=== PATIENT | female | born 1965 | race Caucasian/White ===

== ENCOUNTER 2020-07-26 05:23 | Outpatient (CLI) | payer OTHER, MEDICAID, SELFPAY | END 2020-07-26 05:43 | PROVIDERS: PCP Nurse Practitioner; Visit Provider Pediatrics Pediatric Rheumatology | DX: Z02.71 Encounter for disability determination (principal); Z99.81 Dependence on supplemental oxygen | CPT/HCPCS: 94618 ==

== ENCOUNTER → 2024-06-06 01:00 | Outpatient (CLI) | payer MEDICARE, SELFPAY ==
--- NOTE | 2024-06-06 | DI.CTLCSR_ITS ---
Exam(s) CT CHEST LUNG CANCER SCREEN EXAM: CT CHEST LUNG CANCER SCREEN CLINICAL HISTORY: SCREENING FOR LUNG CA, CURRENT SMOKER, F17.210 TECHNIQUE: Imaging Protocol: Axial computed tomography images with coronal and sagittal reformatted images were created and reviewed. Low dose screening protocol. COMPARISON: No exams were available for comparison FINDINGS: Tracheobronchial tree: No bronchiectasis or mucus plugging. Mediastinum and Karina: No dominant adenopathy or fluid collection. Pulmonary parenchyma: No consolidation or dominant measurable mass. Moderate emphysematous changes, g reater in upper lobes. Scarring in lingula. Lung Nodules: No suspicious pulmonary nodules. Pleura: No effusion. No pneumothorax. Heart: The heart is not dilated. Mild coronary artery calcifications are seen. Aorta: Thoracic aorta non-dilated. Upper abdomen: Limited evaluation due to artifact from low-dose technique. Status post cholecystect jude. Borderline enlarged spleen. Recanalized umbilical vein could indicate cirrhosis. Bones: Scoliosis and degenerative changes. Soft Tissues: Unremarkable. IMPRESSION: No suspicious pulmonary nodules. Lung RADS Cat 1 - Negative: No nodules and definitely benign nodules Lung-RADS 1.0 CATEGORIES: Category 0 - Prior chest CT exam(s) being located for comparison. Category 1 - Annual screening in 12 months. No nodules or definitely benign nodules. Category 2 - Annual screening in 12 months. Benign appearance. Nodules with low likelihood of becomin g active cancer. Category 3 - 6-month follow-up. Probably benign. Short-term follow-up suggested. Nodules with low lik elihood of becoming active cancer. Category 4A - 3-month follow-up and CT/PET if >8 mm in size. Suspicious finding. Findings which requi re additional testing. Category 4B - Findings which require additional testing and tissue sampling. Category 4X - Category 3 or 4 nodules with additional features or imaging findings that increases the suspicion of malignancy. Modifier S- Potentially clinically significant findings (non lung cancer) RADIATION DOSE DELIVERED: Total DLP DATA REPOSITORY: All CT scans at this facility are submitted to the National Radiology Data Registry (NRDR) Dose Index Registry (DIR) with the [employer] (ACR). RADIATION OPTIMIZATION: All CT scans at this facility use at least one of these dose optimization te chniques: automated exposure control; mA and/or kV adjustment per patient size (includes targeted exa ms where dose is matched to clinical indication); or iterative reconstruction.
--- OUTSIDE RECORDS SUMMARY | 2024-06-06 01:04 | XMS_ITS | Encounter Summary ---
[place] [address] Care Team Providers Care News Reporter Name Role Phone Karin Cronin APRN Primary Care Provider +1- [phone] Reason for Visit * Reason Comments Medication Refill Encounter Details Date Type Department Care Team (Late st Contact Info) Description 07/31/2022 Ref[place] [address] Emery Elizabeth, PA [address] [place] [address] [place] [address] Alcoholic cirrhosis, unspecified whether ascites present Social History Tobacco Use Types Packs/Day Years Used Date Smoking Tobacco: Every Day Cigarettes 0.5 40 Smokeless Tobacco: Never Alcohol Use Standard Drinks/Week Comments No 0 (1 standard drink = 0.6 oz pur e alcohol) Sex and Gender Information Value Date Recorded Sex Assigned at Not on file Gender Identity Not on file Sexual Orientation Not on file documented as of this encounter Plan of Treatment Not on file documented as of this encounter Visit Diagnoses Diagnosis Alcoholic cirrhosis, unspecified whether ascites present documented in this encounter Care Teams News Reporter Relationship Specialty Start Date End Date Karin Cronin APRN PCP - General Family Medicine 09/05/15 documented as of this encounter
--- OUTSIDE RECORDS SUMMARY | 2024-06-06 01:04 | XMS_ITS | Encounter Summary ---
[place] [address] Care Team Providers Care Accuracy Expert Name Role Phone Karin Cronin APRN Primary Care Provider +1- [phone] Reason for Visit * Reason Comments Medication Refill Encounter Details Date Type Department Care Team (Late st Contact Info) Description 10/29/2022 Refill [place] [address] Emery Elizabeth, PA [address] [place] [address] [place] [address] Alcoholic cirrhosis, unspecified whether ascites present Social [...] present documented in this encounter Care Teams Accuracy Expert Relationship Specialty Start Date End Date Karin Cronin APRN PCP - General Family Medicine 09/05/15 documented as of this encounter
--- OUTSIDE RECORDS SUMMARY | 2024-06-06 01:04 | XMS_ITS | Encounter Summary ---
[place] [address] Care Team Providers Care Account Clerk Name Role Phone Karin Cronin APRN Primary Care Provider +1- [phone] Encounter Details Date Type Department Care Team (Late st Contact Info) Description 04/02/2022 Telephone [place] [id number] Dasha Foster Social History Tobacco Use Types Packs/Day Years Used Date Smoking Tobacco: Every Day Cigarettes 0.5 40 Smokeless Tobacco: Never Alcohol Use Standard Drinks/Week Comments No 0 (1 standard drink = 0.6 oz pur e alcohol) Sex and Gender Information Value Date Recorded Sex Assigned at Not on file Gender Identity Not on file Sexual Orientation Not on file documented as of this encounter Miscellaneous Notes * Telephone Encounter - Dasha Foster - 04/02/2022 1:40 PM EDT Called pt to schedule May follow up with Emery Elizabeth, with labs and US prior. Left VM. documented in this encounter Plan of Treatment Not on file documented as of this encounter Visit Diagnoses Not on filedocumented in this encounter Care Teams Account Clerk Relationship Specialty Start Date End Date Karin Cronin APRN PCP - General Family Medicine 09/05/15 documented as of this encounter
--- OUTSIDE RECORDS SUMMARY | 2024-06-06 01:04 | XMS_ITS | Encounter Summary ---
[place] [address] Care Team Providers Care Brick Offbearer Name Role Phone Karin Cronin APRN Primary Care Provider +1- [phone] Encounter Details Date Type Department Care Team (Late st Contact Info) Description 10/23/2022 Telephone [place] [address] James Mónica Yumiko Social History Tobacco Use Types Packs/Day Years [...] encounter Miscellaneous Notes * Telephone Encounter - James Mónica Yumiko - 10/23/2022 8:55 AM EST Placed outgoing phone call to patient in order to schedule a procedure. Phone Call Outcome: Left voicemail asking for return call. This was the 1st attempt If the call is returned, it can be handled by: [facility] Room Attendant documented in this encounter Plan of Treatment Not on file documented as of this encounter Visit Diagnoses Not on filedocumented in this encounter Care Teams Brick Offbearer Relationship Specialty Start Date End Date Karin Cronin APRN PCP - General Family Medicine 09/05/15 documented as of this encounter
--- OUTSIDE RECORDS SUMMARY | 2024-06-06 01:04 | XMS_ITS | Encounter Summary ---
Author Organization [facility] [place] [address] Care Team Providers Care Technical Services Analyst Name Role Phone Karin Cronin APRN Primary Care Provider +1- [phone] Encounter Details Date Type Department Care Team (Late st Contact Info) Description 09/12/2021 Interpretation Only [facility] [address] [place] [address] Luc Castro MD [address] [place] [address] Social History Tobacco Use Types Packs/Day Years [...] on file documented as of this encounter Procedures Procedure Name Priority Date/Time Associated Diagnosis Comments XR WRIST 3 VIEWS BILATERAL STAT 09/12/2021 7:55 AM EDT documented in this encounter Results * XR Wrist 3 Views Bilateral (09/12/2021 7:55 AM EDT) PT CLASS E DH RAD ADMITDTTM RAD PT RAD INFO [id number]^B ENEDICT^PRASANNA PH^G DH RAD EXAM DESC [id number]^X R RIGHT WRIST COMPLETE^RIS RAD Anatomical Region Laterality Modality Wrist Bilateral Radiographic Tracie ging Impressions 09/12/2021 8:37 AM EDT No fractures seen. Thank you for letting us participate in the care of this patient. ??If you are a health care provider and have any questions regarding this report, please contact the number below. ??For patients who have questions please contact the health district manager primary care sales that requested your imaging first. ? Electronically signed by: Jerod Morrison MD, [facility] ([phone]), at 09/12/2021 8:37 AM Narrative 09/12/2021 8:37 AM EDT EXAMINATION: XR RIGHT WRIST COMPLETE CLINICAL HISTORY: twisting injury yesterday TECHNIQUE: 3 views the right wrist COMPARISON: None FINDINGS: No acute fracture or dislocation. Normal alignment. No focal osseous lesions Procedure Note Jerod Morrison MD - 09/12/2021 EXAMINATION: XR RIGHT WRIST COMPLETE CLINICAL HISTORY: twisting injury yesterday TECHNIQUE: 3 views the right wrist COMPARISON: None FINDINGS: No acute fracture or dislocation. Normal alignment. No focal osseouslesions IMPRESSION No fractures seen. Thank you for letting us participate in the care of this patient. If youare a health care provider and have any questions regarding this report,please contact the number below. For patients who have questions please contactthe health district manager primary care sales that requested your imaging first. Electronically signed by: Jerod Morrison MD, [facility]([phone]), at 09/12/2021 8:37 AM Luc Castro MD IMG DX ORDERABLES documented in this encounter Visit Diagnoses Not on filedocumented in this encounter Care Teams Technical Services Analyst Relationship Specialty Start Date End Date Karin Cronin APRN PCP - General Family Medicine 09/05/15 documented as of this encounter
--- OUTSIDE RECORDS SUMMARY | 2024-06-06 01:04 | XMS_ITS | Encounter Summary ---
Author Organization [facility] Address [facility] [place] [address] Care Team Providers Care Strategy Consultant Name Role Phone [place], Karin TISHA Primary Care Provider +1- [phone] Encounter Details Date Type Department Care Team (Latest Contact Info) Description 11/07/2015 1:52 PM EST - 11/07/2015 11:59 PM EST Hospital Encounter XRay at [address] [place] [address] Jose Murray MD [facility] [place] [address] Adhesive capsulitis of left shoulder Discharge Disposition: Home Social History Tobacco Use Types Packs/Day Years Used Date Smoking Tobacco: Every Day Cigarettes 0.5 40 Smokeless Tobacco: Never Alcohol Use Standard Drinks/Week Comments No 0 (1 standard drink = 0.6 oz pur e alcohol) Sex and Gender Information Value Date Recorded Sex Assigned at Not on file Gender Identity Not on file Sexual Orientation Not on file documented as of this encounter Medications at Time of Discharge Medication Sig Dispensed Refills Start Date End Date fluticasone (FLONASE) 50 mcg/actuation Burton, Suspension 2 sprays by Each Nare route daily. 11/01/2015 EPINEPHrine (EPIPEN) 0.3 mg/0.3 mL (1:1,000) Auto-Injector Inject 0.3 mg into the muscle once as needed. 06/18/2015 oxyCODONE (ROXICODONE) 5 mg Tablet Take 5 mg by mouth as needed. 10/19/2015 02/10/2022 ibuprofen (ADVIL;MOTRIN) 800 mg Tablet Take 800 mg by mouth every 8 hours as needed. 10/18/2015 02/10/2022 albuterol (PROVENTIL HFA;VENTOLIN HFA;PROAIR) 90 mcg/actuation HFA Aerosol Inhaler Inhale 2 puffs into the lungs every 4 hours as needed for Wheezing. Use with spacer 02/10/2022 furosemide (LASIX) 20 mg Tablet Take 1 tablet by mouth daily. 07/12/2015 02/10/2022 spironolactone (ALDACTONE) 25 mg Tablet Take 1 tablet by mouth daily. 09/16/2015 02/10/2022 documented as of this encounter Plan of Treatment Not on file documented as of this encounter Procedures Procedure Name Priority Date/Time Associated Diagnosis Comments XR FLUORO INJECTION FL DRAIN LARGE JT Routine 11/07/2015 3:09 PM EST Adhesive capsulitis of left shoulder documented in this encounter Results * XR Fluoro Injection Fl Drain Large Jt (11/07/2015 3:09 PM EST) Anatomical Region Laterality Modality N/A Radio Fluoroscop y Impressions 11/07/2015 4:04 PM EST IMPRESSION: Uneventful left shoulder injection under fluoroscopy. Procedure performed by Richelle Wei APRN Resident/Fellow: None present Attending: Dr. Samaniego Narrative 11/07/2015 4:04 PM EST HISTORY: GH shoulder pain, LEFT shoulder proximal biceps tendonitis and adhesive capsulitis Left shoulder INJECTION UNDER FLUOROSCOPY TECHNIQUE: After an extensive conversation with the patient regarding risks and benefits, oral and written consent were obtained. ??A pre- procedural time-out was performed as per [facility] protocol. The patient was placed supine on the fluoroscopic table. ??The left shoulder was prepped and draped in the usual aseptic manner. 1% Lidocaine was used to achieve local anesthesia. Under fluoroscopic guidance, 22-gauge needle was advanced into the joint space. ??Small amount of air was injected to the document needle placement. ??A mixture of Ropivacaine and triamcinolone acetonide was injected. All needles removed at end of procedure. FINDINGS: 1. ??Small amount of injected air in the left glenohumeral joint space. 2. ??PAIN SCORE: ??Before: 4-5/10 ??After: 2-3/10 3. Fluoroscopy time: 23 sec 4. Medications: ??Lidocaine 1% - <5 ml, for subcutaneous anesthesia ??Ropivacaine HCL ??0.5% - 3 ml ??Triamcinolone Acetonide ??- 40 mg COMPLICATIONS: ??None immediate. POST-PROCEDURE CARE: Information regarding monitor of infection, post- procedural pain and management of steroid flare were reviewed with patient. Procedure Note Richelle Wei APRN - 11/07/2015 HISTORY: GH shoulder pain, LEFT shoulder proximal biceps tendonitis andadhesive capsulitis Left shoulder INJECTION UNDER FLUOROSCOPY TECHNIQUE: After an extensive conversation with the patient regardingrisks and benefits, oral and written consent were obtained. A pre- proceduraltime-out was performed as per [facility] protocol. The patient was placed supine on the fluoroscopic table. The leftshoulder was prepped and draped in the usual aseptic manner. 1% Lidocaine was used toachieve local anesthesia. Under fluoroscopic guidance, 22-gauge needle wasadvanced into the joint space. Small amount of air was injected to the documentneedle placement. A mixture of Ropivacaine and triamcinolone acetonide wasinjected. All needles removed at end of procedure. FINDINGS: 1. Small amount of injected air in the left glenohumeral joint space. 2. PAIN SCORE: Before: 4-5/10 After: 2-3/10 3. Fluoroscopy time: 23 sec 4. Medications: Lidocaine 1% - <5 ml, for subcutaneous anesthesia Ropivacaine HCL 0.5% - 3 ml Triamcinolone Acetonide - 40 mg COMPLICATIONS: None immediate. POST-PROCEDURE CARE: Information regarding monitor of infection, post- procedural pain and management of steroid flare were reviewed withpatient. IMPRESSION IMPRESSION: Uneventful left shoulder injection under fluoroscopy. Procedure performed by Richelle Wei APRN Resident/Fellow: None present Attending: Dr. Samaniego Jose Murray MD IMG FLUORO ORDERABLE S documented in this encounter Visit Diagnoses Diagnosis Adhesive capsulitis of left shoulder Adhesive capsulitis of shoulder documented in this encounter Administered Medications Inactive Administered Medications - up to 3 most recent administrations Medication Order MAR Action Action Date Dose Rate Site ROpivacaine (PF) 5 mg/mL (0.5 %) 4 mL with triamcinolone acetonide 40 mg injection Intra-articular, ONCE, 1 dose, On Thu11/07/15 at 1530 Given 11/07/2015 3:30 PM EST documented in this encounter Care Teams Strategy Consultant Relationship Specialty Start Date End Date Karin Cronin APRN PCP - General Family Medicine 09/05/15 documented as of this encounter
--- OUTSIDE RECORDS SUMMARY | 2024-06-06 01:04 | XMS_ITS | Encounter Summary ---
Author Organization [facility] [place] [place] [address] Care Team Providers Care Missile Facilities Repairer Name Role Phone Maxwell, Karin TISHA Primary Care Provider +1- [phone] Encounter Details Date Type Department Care Team (Late st Contact Info) Description 07/09/2022 Tele[place] [address] JamesFebruary Social History Tobacco Use Types Packs/Day Years [...] encounter Miscellaneous Notes * Telephone Encounter - JamesFebruary - 07/09/2022 11:40 AM EDT Jana Ashton [id number] Diagnosis/Indication: history of ETOH cirrhosis with UGIB in 1999s in [place], s/p banding, Please review patient chart to confirm if previous Endoscopy procedure was performed within system. If yes, take note of Anesthesia type used. If previous procedure found, and with MAC/propofol Anesthesia support was used, schedule this procedure with Anesthesia and skip the Anesthesia portion of questions. If not performed within system, not performed at all, or performed with IVCS, ask Anesthesia questions. SCHEDULING QUESTIONS (ask all patient these questions) 1. Have you ever had a/an Upper Endoscopy before? Yes: Date egd 2007 [place] If yes, did you have any problems with the procedure (such as waking up during the procedure, pain or difficulties afterwards, etc.)? No What type of sedation was used: Other: unknown 2. Do you take any blood thinners or have you been diagnosed with a bleeding disorder that increases your risk of bleeding with procedures? No 3. Do you have a Pacemaker or Defibrillator device? If yes, send pool message to Cardiology with patient information and date or procedure. No 4. Are you a diabetic? If yes, call PCP/managing provider to discuss use of prep and any questions or concerns related to. No 5. Do you take any iron supplements or vitamins that contain iron? No 6. Do you have a preference regarding the gender of your provider? No ANESTHESIA QUESTIONS (YES to any question, please book with Anesthesia support) 7. Have you ever been diagnosed with any of the following: Pulmonary Hypertension, Atrial Fibrillation (A-Fib) and/or Congential Heart Disease? No 8. Have you ever had an allergic or adverse reaction to Fentanyl or Versed? No 9. Have you had a problem with sedation or anesthesia? (Waking up during procedure, extreme confusion after, etc.) No 10. Do you have a diagnosis of Obstructive Sleep Apnea? No 11. Do you use a c-pap machine? Neither 12. Do you use an oxygen tank at home? No 13. Do you use a rescue inhaler more than twice per day? (COPD, severe asthma) Yes 14. Do you experience breathing problems when you lay flat for a period of time? No 15. Do you take prescription narcotic pain medications, including suboxone or methodone? No SCHEDULING CONFIRMATIONS: Please note any and all parts of your conversation with the patient here. 16. We offer all new patients an opportunity to have an appointment with one of our associate care providers to learn more about your upcoming procedure, ask questions and get answers. These appointments are offered via telehealth. Would you be interested in scheduling this appointment? (Only ask if NEW referral patient; skip this question if [facility] GI provider ordered the procedure.) No 17. Is there any other information or concerns you would like to us to share with your care team inrelation to your upcoming scheduled procedure? No 18. You must have a responsible democrat who will drive you to your procedure, stay on campus for the entire duration of your procedure, and drive you home from your procedure. Who will likely be your independent driver for the procedure? *Please Verify the height and weight, and adjust if height and/or weight have changed* Estimated body mass index is 28.08 kg/m?? as calculated from the following: Height as of 12/20/15: 167.6 cm (5' 6). Weight as of 02/10/22: 78.9 kg (174 lb). Age:56 y.o. documented in this encounter Plan of Treatment Not on file documented as of this encounter Visit Diagnoses Not on filedocumented in this encounter Care Teams Missile Facilities Repairer Relationship Specialty Start Date End Date Karin Cronin APRN PCP - General Family Medicine 09/05/15 documented as of this encounter
--- OUTSIDE RECORDS SUMMARY | 2024-06-06 01:04 | XMS_ITS | Encounter Summary ---
[facility] Organization [facility] [place] [address] Care Team Providers Care Trolley Coach Driver Name Role Phone Karin Cronin APRN Primary Care Provider [phone]- [phone] Reason for Referral * Physical Therapy (Routine) - Closed Specialty Diagnoses / Procedures Referred By Dustin jordan Referred To Contact Diagnoses Adhesive capsulitis of left shoulder Conchita Mendiola TARIFF CLERK [facility] [place] [address] Unknown None Referral ID Status Reason Start Date Expiration Date V isits Requested Visits Authorized [id number] Closed Evaluate and Treat 10/30/2015 04/27/2016 24 24 Reason for Visit * Reason Comments Left Shoulder Pain WC DOI 07/27/15 Encounter Details Date Type Department Care Team (Late st Contact Info) Description 10/30/2015 9:00 AM EST Office [place] [address] Conchita Mendiola [facility] [place] [address] Adhesive capsulitis of left shoulder; Subacromial bursitis, left; Tendinopathy of left biceps; SLAP tear of shoulder, left, subsequent encounter Social History Tobacco Use Types Packs/Day Years Used Date Smoking Tobacco: Every Day Cigarettes 0.5 40 Smokeless Tobacco: Never Tobacco Cessation:Ready to Q uit: No; Counseling Given: No Alcohol Use Standard Drinks/Week Comments No 0 (1 standard drink = 0.6 oz pur e alcohol) Sex and Gender Information Value Date Recorded Sex Assigned at Not on file Gender Identity Not on file Sexual Orientation Not on file documented as of this encounter Last Filed Vital Signs Vital Sign Reading Time Taken Comments Blood Pressure 124/73 10/30/2015 9:11 AM EST Pulse 81 10/30/2015 9:11 AM EST Temperature - - Respiratory Rate - - Oxygen Saturation - - Inhaled Oxygen Concentration - - Weight 77.1 kg (170 lb) 10/30/2015 9:11 AM EST v erbal Height 167.6 cm (5' 6) 10/30/2015 9:11 AM EST v erbal Body Mass Index 27.44 10/30/2015 9:11 AM EST documented in this encounter Progress Notes * Conchita Mendiola, TARIFF CLERK - 10/30/2015 9:18 AM EST Chief Complaint: LEFT shoulder pain. F/u appointment. 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 Murray's previous detailed initial evaluation which will not repeated here. In general, she has made slow steady gains with range of motion and decreased pain with overhead activity. Yet, she continues with a burning pain over the lateral deltoid and anterior glenohumeral pain over the proximal biceps tendon. Modalities thus far have includedseveral sessions of physical therapy and oral NSAID's. She has continued with night time pain and she did recently see her PCP and oral Ibuprofen during the day was recommended along with oral percocet at bedtime, Which she has been using sparingly. No interval falls injuries or infections. There is no radicular component to her LEFT shoulder pain. There is no neck pain. Occasional numbness and tingling in her fourth and fifth finger unchanged today. No history of cubital tunnel syndrome. Her chronic medical illnesses are stable otherwise I updated her problem list today. And she's here for definitive management. ROS: Denies fever, chills, nausea, vomiting, vision change, shortness of breath, chest pain, visionchanges, headaches, bowel or bladder problem, ear, nose, sinus problem, neuro or psychiatric, or endocrine disorder not addressed above. Patient's medications, allergies, past medical, surgical, social and family histories were reviewedand updated as appropriate. PHYSICAL EXAMINATION: Filed Vitals: 10/30/15 0911 BP: 124/73 Pulse: 81 Height: 167.6 cm (5' 6) Weight: 77.111 kg (170 lb) Body mass index is 27.45 kg/(m^2). General: This is a very pleasant 50-year-old uchjm-fgup-ynpopclr female no acute distress she is alert and oriented ??3 affect is bright and appropriate. She is here with her today. HEENT - normocephalic, atraumatic, sclera clear c-spine with mild stiffness with negative Spurling's. Chest: RR: 12. Non-labored. Orthopedic left shoulder exam: LEFT shoulder ROM: There is improved active range of motion today noted active forward flexion to 140?? with a soft end endpoint. There is a painful arc. Abduction to approximately 120?? with a painful arc. External rotation to approximate 60?? with a soft endpoint. Internal rotation to approximately L4/L5. There is tenderness at the proximal biceps tendon with a positive speeds Yergason's and [place]'s. There is tenderness at the anterior glenohumeral joint. There is mild tenderness of the lateral deltoid. Posture is rounded. Rotator cuff impingement signs: There is a negative Neer positive Ray. There is no tenderness at the acromioclavicular joint. IMAGING: OUTSIDE Left shoulder MRI scan reviewed image by image in the office today from an outsideprovider. There is evidence of rotator cuff tendinopathy with mild fraying, mild acromioclavicular joint degenerative changes, probable SLAP tear, proximal biceps tendinopathy without subluxation rupture. ASSESSMENT: This is a very pleasant 50-year-old xgytk-rjfp-irueedff female with a work-related leftshoulder injury with slow improvement with her progress particularly with range of motion and adhesive capsulitis symptoms of the LEFT shoulder. The LEFT shoulder proximal Biceps tendon symptoms continue with no mechanical complaints with known SLAP tear. Mild rotator cuff impingement noted clinically. PLAN: I reviewed my findings in the office today with both MRI scan and clinical exam. Treatment options and risks/benefits discussed from least to most invasive. Patient understands options. At thistime, the initial thought was to try a subacromial cortisone injection yet the majority of her symptoms today are proximal biceps tendon with known SLAP tear and biceps tendinopathy. There is resolving adhesive capsulitis. I discussed the difference between a subacromial cortisone injection and a fluoroscopically guided glenohumeral injection. Per Pt request, Due to anxiety and claustrophobia, she will need oral sedation with this procedure ordered in ED H today. The aforementioned injection will be followed by a comprehensive physical therapy program and her PT orders are updated today. The goal is to focus on range of motion exercises. I did ask her to keep a close diary of her symptoms post injection as this is both a diagnostic and therapeutic injection. If her rotator cuff impingement symptoms persist, she may benefit from a subacromial cortisone injection in the office at her nextvisit. At this time, she will remain out of work as she states there is no light duty work available to her at her [employer]. [facility] [place] today. The follow plan is to see her in 6-8 weeks post-injection to discuss further treatment options. We will need a LEFT shoulder x-ray at her next a ppointment, Yet I will see her in the office first. Pt agrees, questions solicited/answered, will return as scheduled and as needed for concerns or questions. Pt understands they may also call us prnfor above. documented in this encounter Plan of Treatment Scheduled Referrals Name Type Priority Associated Diagnoses Orde r Schedule Referral to Physical Therapy Outpatient Referral Routine Adhesive capsulitis of left shoulder Ordered: 10/30/2015 documented as of this encounter Results * XR Fluoro Injection [...] pre- procedural time-out was performed as per [facility] protocol. The patient was placed supine on [...] space. 2. ??PAIN SCORE: ??Before: 4-5/10 ??After: 2-310 3. Fluoroscopy time: 23 sec 4. Medications: ??Lidocaine 1% - <5 ml, for subcutaneous anesthesia ??Ropivacaine HCL ??0.5% - 3 ml ??Triamcinolone Acetonide ??- 40 mg COMPLICATIONS: ??None immediate. POST-PROCEDURE CARE: Information regarding monitor of infection, post- procedural pain and management of steroid flare were reviewed with patient. Procedure Note Richelle Wei, TARIFF CLERK - 11/07/2015 HISTORY: GH shoulder pain, LEFT shoulder proximal biceps tendonitis andadhesive capsulitis Left shoulder INJECTION UNDER FLUOROSCOPY TECHNIQUE: After an extensive conversation with the patient regardingrisks and benefits, oral and written consent were obtained. A pre- proceduraltime-out was performed as per [facility] protocol. The patient was placed supine on [...] of left shoulder Adhesive capsulitis of shoulder Subacromial bursitis, left Tendinopathy of left biceps SLAP tear of shoulder, left, subsequent encounter Adhesive capsulitis of left shoulder Adhesive capsulitis of shoulder documented in this encounter Care Teams Trolley Coach Driver Relationship Specialty Start Date End Date Karin Cronin APRN PCP - General Family Medicine 09/05/15 documented as of this encounter
--- OUTSIDE RECORDS SUMMARY | 2024-06-06 01:04 | XMS_ITS | Clinical Summary ---
Author Organization [facility] Address [address] [place] [address] Care Team Providers Care Inspector Screen Printing Name Role Phone Unknown, Provider Primary Care Provider Social History Tobacco Use Types Packs/Day Years Used Date Smoking Tobacco: Never Assessed Interpersonal Safety Answer Date Record ed Physically Hurt Never 06/22/2020 Verbally Threaten Not on file 06/22/2020 Sex and Gender Information Value Date Recorded Sex Assigned at Not on file Gender Identity Not on file Sexual Orientation Not on file Plan of Treatment Health Maintenance Due Date Last Done Comments Hepatitis C Screen 1965 Hepatitis B Vaccine (1 of 3 - 19+ 3-dose series) 08/08 COVID-19 Vaccine ( season) 2023 Care Teams Inspector Screen Printing Relationship Specialty Start Date End Date Unknown, Provider, PCP - General 09/06/14
--- OUTSIDE RECORDS SUMMARY | 2024-06-06 01:04 | XMS_ITS | Encounter Summary ---
[place] [address] Care Team Providers Care Material Engineer Name Role Phone Karin Cronin APRN Primary Care Provider [phone]- [phone] Encounter Details Date Type Department Care Team (Late st Contact Info) Description 12/22/2022 [place] [address] Lena Brown Social History Tobacco Use Types Packs/Day Years [...] encounter Miscellaneous Notes * Telephone Encounter - Lena Brown - 12/22/2022 11:31 AM EST Placed outgoing phone call to patient in order to schedule a procedure. Phone Call Outcome: Left voicemail asking for return call. This was the 3rd attempt Sent final letter If the call is returned, it can be handled by: [facility] End[facility] Electrical Tech/Project Manager documented in this encounter Plan of Treatment Not on file documented as of this encounter Visit Diagnoses Not on filedocumented in this encounter Care Teams Material Engineer Relationship Specialty Start Date End Date Karin Cronin APRN PCP - General Family Medicine 09/05/15 documented as of this encounter
--- OUTSIDE RECORDS SUMMARY | 2024-06-06 01:04 | XMS_ITS | Clinical Summary ---
Author Organization [facility] [place] [address] Care Team Providers Care Federal Java Developer Name Role Phone Karin Cronin APRN Primary Care Provider +1- [phone] Allergies Active Allergy Reactions Criticality Noted Date Comments Amoxicillin Hives 09/19/2015 Cefuroxime Axetil Hives 09/19/2015 Doxycycline Hives 09/19/2015 Erythromycin Hives 09/19/2015 Penicillins Hives 09/19/2015 Medications Medication Sig Dispensed Refills Start Date End Date Status EPINEPHrine (EPIPEN) 0.3 mg/0.3 mL (1:1,000) Auto-Injector Inject 0.3 mg into the muscle once as needed. 06/18/2015 Active fluticasone (FLONASE) 50 mcg/actuation [place], Suspension 2 sprays by Each Nare route daily. 11/01/2015 Active Spiriva Respimat 1.25 mcg/actuation Mist INHALE 2 SPRAY(S) BY MOUTH ONCE DAILY 02/03/2022 Active furosemide (Lasix) 40 mg Tablet Take 40 mg by mouth daily. 02/01/2022 Active albuteroL 90 mcg/actuation HFA Aerosol Inhaler Inhale 2 puffs into the lungs every 4 hours as needed for Wheezing. Use with spacer Active spironolactone (Aldactone) 25 mg TabletIndications:Alc oholic cirrhosis, unspecified whether ascites present Take 2 tablets by mouth once daily 60 tablet 07/29/2022 Active Active Problems Problem Noted Date Diagnosed Date Alcoholic cirrhosis 02/10/2022 History of GI bleed 02/10/2022 Portal hypertension 02/10/2022 Anxiety 02/10/2022 Insomnia 02/10/2022 COPD (chronic obstructive pulmonary disease) 02/2022 History of total left knee replacement (TKR) 02/2022 Cervical neoplasm 02/10/2022 Hypertension 10/30/2015 History of alcohol abuse 10/30/2015 Thrombocytopenia 10/30/2015 Anemia 10/30/2015 H/O tubal ligation 10/30/2015 History of laryngoscopy 10/30/2015 H/O vaginal hysterectomy 10/30/2015 SLAP tear of shoulder 10/30/2015 Tendinopathy of left biceps 10/30/2015 Subacromial bursitis 10/30/2015 Adhesive capsulitis of left shoulder 09/19/2015 Resolved Problems Problem Noted Date Diagnosed Date Resolved Date History of cirrhosis of liver 10/30/2015 02/10/2022 Encounters Date Type Department Care Team Description 05/10/2024 Interpretation Only [address] [address] Nilson Valdez MD from Last 3 Months Family History Medical History Relation Comments Cancer Father Cancer Mother Relation Status Comments Father Mother Social History Tobacco Use Types Packs/Day Years [...] on file Sexual Orientation Not on file Last Filed Vital Signs Vital Sign Reading Time Taken Comments Blood Pressure 132/75 02/10/2022 8:47 AM EDT Pulse 78 02/10/2022 8:47 AM EDT Temperature - - Respiratory Rate - - Oxygen Saturation - - Inhaled Oxygen Concentration - - Weight 78.9 kg (174 lb) 02/10/2022 8:47 AM EDT Height 167.6 cm (5' 6) 12/20/2015 10:42 AM EST stated Body Mass Index 28.08 12/20/2015 10:42 AM EST Plan of Treatment Health Maintenance Due Date Last Done Comments CT Colonography 1964 Colonoscopy 1964 Colorectal Cancer Screening 1964 FIT DNA 1964 FIT 1964 Sigmoidoscopy (10 year) with FIT yearly 1964 Sigmoidoscopy 1964 Pneumococcal Vaccine: At-Ris k 5-64yrs (1 of 2 - PCV) 1970 HIV screen 1982 Lipid Screening 1982 Hepatitis B vaccine (0-59 yrs) (1) 1983 Tdap adult 1983 Tetanus vaccine 1983 HPV test 1994 PAP Smear 1994 Breast Cancer Share Decision Needed 2004 Zoster vaccine (1 of 2) 2014 Advance Directive 2019 Covid-19 Vaccine (1 - 2022- season) 2023 Influenza (Flu) vaccine (1 o f 1 - Influenza standard series) 07/10/2024 Breast Cancer screening 11/27/2024 11/27/2022, 11/27 Diabetes Screening (HgbA1C or Glucose) 02/10/2025 Hepatitis C Screening Completed 02/10/2022 Procedures Procedure Name Priority Date/Time Associated Diagnosis Comments XR FINGER(S) MIN 2 VIEWS RIGHT Routine 05/10/2024 12:42 PM EDT MAMMO DIAGNOSTIC CAD BILATERAL Routine 11/27/2022 9:47 AM EST HC HEPATITIS C ANTIBODY Routine 02/10/2022 10:36 AM EDT Alcoholic cirrhosis, unspecified whether ascites present COMPREHENSIVE METABOLIC PANEL (NON-FASTING) Routine 02/10/2022 10:36 AM EDT Alcoholic cirrhosis, unspecified whether ascites present from Last 3 Months or Most Recently Relevant to Health Maintenance Results * XR Fingers Min 2 views Right (Generic) (05/10/2024 12:42 PM EDT) PT CLASS O RAD ADMITDTTM [id number] RAD PT RAD INFO [id number]^Jaar^ Nilson RAD EXAM DESC [id number]^XR Finger(s) 2+ Views Right^RIS RAD WORKSTATION ID [id number] RAD Anatomical Region Laterality Modality Hand Right Radiographic Tracie ging 05/10/2024 12:4 2 PM EDT Impressions 05/10/2024 3:04 PM EDT 1. ??No acute fracture or malalignment. 2. ??Osteoarthropathy of the right thumb. Thank you for letting us participate in the care of this patient. ??If you are a health care provider and have any questions regarding this report, please contact the number below. ??For patients who have questions please contact the health caretaker resort that requested your imaging first. ? Electronically signed by: Radha Buck MD, [facility] ([phone]), at 05/10/2024 3:04 PM Narrative 05/10/2024 3:04 PM EDT EXAMINATION: XR Finger(s) 2+ Views Right CLINICAL HISTORY: pain specific to the right IP joint after tugging injury. assess for fx or dislocation at IP Joint (as entered by ordering provider in the order requisition) TECHNIQUE: PA, oblique, lateral views of the right thumb. COMPARISON: Right hand radiographs July 21, 2023 FINDINGS: No acute fracture or malalignment. Subchondral sclerosis and marginal osteophyte formation at the triscaphe joint, 1st carpal metacarpal joint, 1st metacarpophalangeal joint, and thumb interphalangeal joint. Procedure Note Radha Buck MD - 05/10/2024 EXAMINATION: XR Finger(s) 2+ Views Right CLINICAL HISTORY: pain specific to the right IP joint after tugginginjury. assess for fx or dislocation at IP Joint (as entered by ordering provider in the order requisition) TECHNIQUE: PA, oblique, lateral views of the right thumb. COMPARISON: Right hand radiographs July 21, 2023 FINDINGS: No acute fracture or malalignment. Subchondral sclerosis and marginal osteophyte formation at the triscaphejoint, 1st carpal metacarpal joint, 1st metacarpophalangeal joint, and thumb interphalangeal joint. IMPRESSION 1. No acute fracture or malalignment. 2. Osteoarthropathy of the right thumb. Thank you for letting us participate in the care of this patient. If youare a health care provider and have any questions regarding this report,please contact the number below. For patients who have questions please contactthe health caretaker resort that requested your imaging first. Electronically signed by: Radha Buck MD, [facility]([phone]), at 05/10/2024 3:04 PM Nilson Valdez MD IMG DX ORDERABLES * Mammo Diagnostic Cad Bilateral (11/27/2022 9:47 AM EST) PT CLASS O RAD ADMITDTTM RAD PT RAD INFO [id number]^JENNIFER STOL^ADDIS RAD EXAM DESC MADDBI^DX MAMMO INCLUDING CAD BILATER^RIS RAD Anatomical Region Laterality Modality Breast Bilateral Mammography Impressions 11/27/2022 1:48 PM EST A likely inflammatory intradermal nodule. BI-RADS Category 3. Probably benign. RECOMMENDATION: Surgical referral for biopsy and removal. Thank you for letting us participate in the care of this patient. If you are a health care provider and have any questions regarding this report, please contact the number below. For patients who have questions please contact the health caretaker resort that requested your imaging first. Thank you for letting us participate in the care of this patient. ??If you are a health care provider and have any questions regarding this report, please contact the number below. ??For patients who have questions please contact the health caretaker resort that requested your imaging first. ? Electronically signed by: Jerod Morrison MD, [facility] ([phone]), at 11/27/2022 1:48 PM Narrative 11/27/2022 1:48 PM EST EXAMINATION: MAMMO TOMOSTYNTHESIS DIAG BI, DX MAMMO INCLUDING CAD BILATER CLINICAL HISTORY: bilateral breast, left breast, firm and tender not completely mobile mass at 2oclock from left nipple TECHNIQUE: CC and MLO views of both breasts. 2-D and 3-D images were obtained. Diagnostic ultrasound of the left breast followed. COMPARISON: Screening mammogram March 09, 2017. FINDINGS: Diagnostic mammogram: Breasts are predominantly fatty. No suspicious masses, architectural distortion or suspicious clusters of microcalcifications detected. Diagnostic ultrasound: A well-circumscribed, wider than it is tall, well circumscribed heterogeneously hypodense hypervascular focus projects at skin/fat interface in the left areolar approximately 1 cm away from the nipple at 2 o'clock. Procedure Note Jerod Morrison MD - 11/27/2022 EXAMINATION: MAMMO TOMOSTYNTHESIS DIAG BI, DX MAMMO INCLUDING CADBILATER CLINICAL HISTORY: bilateral breast, left breast, firm and tender notcompletely mobile mass at 2oclock from left nipple TECHNIQUE: CC and MLO views of both breasts. 2-D and 3-D images were obtained.Diagnostic ultrasound of the left breast followed. COMPARISON: Screening mammogram March 09, 2017. FINDINGS: Diagnostic mammogram: Breasts are predominantly fatty. No suspiciousmasses, architectural distortion or suspicious clusters of microcalcificationsdetected. Diagnostic ultrasound: A well-circumscribed, wider than it is tall, well circumscribed heterogeneously hypodense hypervascular focus projects atskin/fat interface in the left areolar approximately 1 cm away from the nipple at2 o'clock. IMPRESSION A likely inflammatory intradermal nodule. BI-RADS Category 3. Probably benign. RECOMMENDATION: Surgical referral for biopsy and removal. Thank you for letting us participate in the care of this patient. If youare a health care provider and have any questions regarding this report,please contact the number below. For patients who have questions please contactthe health caretaker resort that requested your imaging first. Thank you for letting us participate in the care of this patient. If youare a health care provider and have any questions regarding this report,please contact the number below. For patients who have questions please contactthe health caretaker resort that requested your imaging first. Electronically signed by: Jerod Morrison MD, [facility]([phone]), at 11/27/2022 1:48 PM Addis Annie Cabral[facility] IMG MAMMO ORDERAB LES * Hepatitis C Antibody (02/10/2022 10:36 AM EDT) Pathologist [facility] Hepatitis C Ab Negative Negative [facility] Blood 02/10/2022 10:3 6 AM EDT 02/10/2022 10:50 AM EDT Narrative Resulting Agency Comment Spec In Lab Brandy Carballo MD IMMUNOLOGY ORDERABLE S [facility] [place] [address] * Comprehensive metabolic panel (non-fasting) (02/10/2022 10:36 AM EDT) Pathologist [facility] Glucose Lvl 99 65 - 199 mg/dL [facility] Comment:Diabetes: >=200 mg/d L plus symptoms BUN 9 8 - 18 mg/dL [facility] Creatinine 0.91 0.70 - 1.20 mg/dL [facility] Sodium 141 135 - 145 mmol/L [facility] Potassium 3.9 3.5 - 5.0 mmol/L [facility] Comment: Please note: ??Patients with WBC >100,000 may have falsely elevated Potassium levels. ??For accurate Potassium quantification in these patients send serum separator tube (gold top) for subsequent determinations. ??Contact the Clinical Chemistry Laboratory if there are any questions. Chloride 105 98 - 107 mmol/L [facility] CO2 25 22 - 31 mmol/L [facility] Anion Gap 11 5 - 15 mmol/L [facility] Calcium 9.7 8.5 - 10.5 mg/dL [facility] Total Protein 7.7 6.1 - 8.0 g/dL [facility] Albumin 3.8 3.2 - 5.2 g/dL [facility] AST 25 0 - 30 unit/L [facility] ALT 14 0 - 30 unit/L [facility] Alk Phos 85 35 - 105 unit/L [facility] Total Bilirubin 1.2 0.2 - 1.3 mg/dL [facility] Estimated GFR 70 >=60 mL/min/1. 73 m?? [facility] Comment: This patient? s estimated glomerular filtration rate (eGFR) is between 70 mL/min/1.73 m2 (patients with less muscle mass) and 81 mL/min/1.73 m2 (patients with more muscle mass) as determined by the CKD-EPI equation. Assessment of eGFR is not appropriate when creatinine concentrations are rapidly changing. For clinical decisions where creatinine clearance will affect therapy, a 24-hour urine creatinine clearance may be advised. Assignment of CKD stage 1 - 5 for patients with an eGFR near the transition point between stages may be based on clinical assessment of muscle mass and symptoms in addition to eGFR. Blood 02/10/2022 10:3 6 AM EDT 02/10/2022 10:50 AM EDT Narrative Resulting Agency Comment Spec In Lab Brandy Carballo MD CHEMISTRY ORDERABLES [facility] [address] [place] [address] from Last 3 Months or Most Recently Relevant to Health Maintenance Care Teams Federal Java Developer Relationship Specialty Start Date End Date Karin Cronin APRN PCP - General Family Medicine 09/05/15
--- OUTSIDE RECORDS SUMMARY | 2024-06-06 01:04 | XMS_ITS | Encounter Summary ---
Author Organization [facility] [place] [address] Care Team Providers Care Engineering Mathematician Name Role Phone Karin Cronin APRN Primary Care Provider +1- [phone] Encounter Details Date Type Department Care Team (Late st Contact Info) Description 03/27/2022 Orders [place] [address] Emery Elizabeth, PA [address] [place] [address] [place] [address] Alcoholic cirrhosis, unspecified whether ascites present Social [...] present documented in this encounter Care Teams Engineering Mathematician Relationship Specialty Start Date End Date Karin Cronin APRN PCP - General Family Medicine 09/05/15 documented as of this encounter
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
--- OUTSIDE RECORDS SUMMARY | 2024-06-06 01:04 | XMS_ITS | Encounter Summary ---
Author Organization [facility] [place] [address] Care Team Providers Care Speed Runner Name Role Phone [place], Karin TISHA Primary Care Provider +1- [phone] Encounter Details Date Type Department Care Team (Late st Contact Info) Description 11/27/2022 Interpretation Only [address] [phone] Addis Cabrales APRN [address] [place] [address] Social History Tobacco Use Types Packs/Day Years [...] Procedure Name Priority Date/Time Associated Diagnosis Comments MAMMO DIAGNOSTIC CAD AND JR BILATERAL Routine 11/27/2022 9:48 AM EST documented in this encounter Results * Mammo Diagnostic CAD and Jr Bilateral (11/27/2022 9:48 AM EST) PT CLASS O DH RAD ADMITDTTM DH RAD PT RAD MD INFO [id number]^BRISTOL ^ADDIS DH RAD EXAM DESC MADDBITO^MAMMO TOMOSTYNTHESIS DIAG BI^RIS RAD Anatomical Region Laterality Modality Breast Bilateral [...] who have questions please contact the health manager care management that requested your imaging first. Thank you for letting us participate in the care of this patient. ??If you are a health care provider and have any questions regarding this report, please contact the number below. ??For patients who have questions please contact the health manager care management that requested your imaging first. ? Electronically signed by: Jerod Morrison MD, [facility] ([phone]), at 11/27/2022 1:48 PM Narrative 11/27/2022 1:48 [...] patients who have questions please contactthe health manager care management that requested your imaging first. Thank you for letting us participate in the care of this patient. If youare a health care provider and have any questions regarding this report,please contact the number below. For patients who have questions please contactthe health manager care management that requested your imaging first. Electronically signed by: Jerod Morrison MD, [facility]([phone]), at 11/27/2022 1:48 PM Addis Cabrales APRN IMG MAMMO ORDERAB LES documented in this encounter Visit Diagnoses Not on filedocumented in this encounter Care Teams Speed Runner Relationship Specialty Start Date End Date Karin Cronin APRN PCP - General Family Medicine 09/05/15 documented as of this encounter
--- OUTSIDE RECORDS SUMMARY | 2024-06-06 01:04 | XMS_ITS | Encounter Summary ---
Author Organization [facility] [place] [address] Care Team Providers Care Cement Mason Name Role Phone Karin Cronin APRN Primary Care Provider +1- [phone] Encounter Details Date Type Department Care Team (Late st Contact Info) Description 12/28/2023 Interpretation Only [address] [phone] Karin Cronin APRN [address] [place] [address] Social History Tobacco Use Types Packs/Day Years [...] Name Priority Date/Time Associated Diagnosis Comments XR TIBIA FIBULA LEFT Routine 12/28/2023 10:51 AM EST documented in this encounter Results * XR Tibia Fibula Left (Generic) (12/28/2023 10:51 AM EST) PT CLASS O DH RAD ADMITDTTM [id number] RAD PT RAD MD INFO [id number]^Boardma n^Karin RAD EXAM DESC [id number]^XR Tibia/Fibula Left^RIS RAD Anatomical Region Laterality Modality Left Radiographic Tracie ging 12/28/2023 10:5 1 AM EST Impressions 12/28/2023 12:12 PM EST No acute fracture or periostitis. Thank you for letting us participate in the care of this patient. ??If you are a health care provider and have any questions regarding this report, please contact the number below. ??For patients who have questions please contact the health healthcare project manager that requested your imaging first. ? Narrative 12/28/2023 12:12 PM EST EXAMINATION: XR Tibia/Fibula Left CLINICAL HISTORY: fall, , entered by ordering service TECHNIQUE: Tibia and fibula, 2 view[s] COMPARISON: none FINDINGS: Bones No acute fracture or periostitis. Joints Knee- Partially included total knee arthroplasty Ankle-congruent. Soft Tissue No soft tissue air or foreign body detected. Procedure Note Leslie Charles MD - 12/28/2023 EXAMINATION: XR Tibia/Fibula Left CLINICAL HISTORY: fall, , entered by ordering service TECHNIQUE: Tibia and fibula, 2 view[s] COMPARISON: none FINDINGS: Bones No acute fracture or periostitis. Joints Knee- Partially included total knee arthroplasty Ankle-congruent. Soft Tissue No soft tissue air or foreign body detected. IMPRESSION No acute fracture or periostitis. Thank you for letting us participate in the care of this patient. If youare a health care provider and have any questions regarding this report,please contact the number below. For patients who have questions please contactthe health healthcare project manager that requested your imaging first. Electronically signed by: [facility]([phone]), at 12/28/2023 12:12 PM Karin Cronin APRN IMG DX ORDERABLES documented in this encounter Visit Diagnoses Not on filedocumented in this encounter Care Teams Cement Mason Relationship Specialty Start Date End Date Karin Cronin APRN PCP - General Family Medicine 09/05/15 documented as of this encounter
--- OUTSIDE RECORDS SUMMARY | 2024-06-06 01:04 | XMS_ITS | Encounter Summary ---
Author Organization [facility] [place] [address] Care Team Providers Care Authorization Nurse Name Role Phone [place], Karin TISHA Primary Care Provider +1- [phone] Encounter Details Date Type Department Care Team (Late st Contact Info) Description 11/27/2022 Interpretation Only [address] [phone] Addis Cabrales APRN [address] [place] [address] Social History Tobacco Use Types Packs/Day Years [...] Date/Time Associated Diagnosis Comments MAMMO DIAGNOSTIC CAD BILATERAL Routine 11/27/2022 9:47 AM EST documented in this encounter Results * Mammo Diagnostic Cad Bilateral (11/27/2022 9:47 AM EST) PT CLASS O DH RAD ADMITDTTM DH RAD PT DH RAD INFO [id number]^JENNIFER STOL^ADDIS DH RAD EXAM DESC MADDBI^DX MAMMO INCLUDING CAD [...] who have questions please contact the health complex care nurse practitioner that requested your imaging first. Thank you for letting us participate in the care of this patient. ??If you are a health care provider and have any questions regarding this report, please contact the number below. ??For patients who have questions please contact the health complex care nurse practitioner that requested your imaging first. ? Electronically signed by: Jerod Morrison MD, [facility] ([phone]), at 11/27/2022 1:48 PM Narrative 11/27/2022 1:48 [...] patients who have questions please contactthe health complex care nurse practitioner that requested your imaging first. Thank you for letting us participate in the care of this patient. If youare a health care provider and have any questions regarding this report,please contact the number below. For patients who have questions please contactthe health complex care nurse practitioner that requested your imaging first. Addis Cabrales APRN IMG MAMMO ORDERAB LES documented in this encounter Visit Diagnoses Not on filedocumented in this encounter Care Teams Authorization Nurse Relationship Specialty Start Date End Date Karin Cronin APRN PCP - General Family Medicine 09/05/15 documented as of this encounter
--- OUTSIDE RECORDS SUMMARY | 2024-06-06 01:04 | XMS_ITS | Encounter Summary ---
Author Organization [facility] [place] [address] Care Team Providers Care Manager Insurance Name Role Phone Karin Cronin APRN Primary Care Provider +1- [phone] Encounter Details Date Type Department Care Team (Late st Contact Info) Description 05/10/2024 Interpretation Only [address] [phone] Nilson Valdez MD [address] [place] [address] Social History Tobacco Use Types Packs/Day [...] VIEWS RIGHT Routine 05/10/2024 12:42 PM EDT documented in this encounter Results * XR Fingers Min 2 views Right (Generic) (05/10/2024 12:42 PM EDT) PT CLASS O DH RAD ADMITDTTM [id number] RAD PT RAD INFO [id number]^José Miguel^ Nilson RAD EXAM DESC [id number]^XR Finger(s) 2+ Views Right^RIS RAD WORKSTATION ID [id number] DH RAD Anatomical Region Laterality Modality Hand Right [...] who have questions please contact the health progressive care nurse that requested your imaging first. ? Electronically signed by: Radha Buck MD, [facility] ([phone]), at 05/10/2024 3:04 PM Narrative 05/10/2024 3:04 [...] patients who have questions please contactthe health progressive care nurse that requested your imaging first. Electronically signed by: Radha Buck MD, [facility]([phone]), at 05/10/2024 3:04 PM Nilson Valdez MD IMG DX ORDERABLES documented in this encounter Visit Diagnoses Not on filedocumented in this encounter Care Teams Manager Insurance Relationship Specialty Start Date End Date Karin Cronin APRN PCP - General Family Medicine 09/05/15 documented as of this encounter
--- OUTSIDE RECORDS SUMMARY | 2024-06-06 01:04 | XMS_ITS | Encounter Summary ---
Author Organization [facility] [place] [address] Care Team Providers Care Carrier Operator Name Role Phone Roseanne Karin GILES Primary Care Provider +1- [phone] Encounter Details Date Type Department Care Team (Latest Contact Info) Description 02/16/2023 2:13 PM EDT - 02/16/2023 11:59 PM EDT [place] [phone] Discharge Disposition: Home Social History Tobacco Use [...] Sig Dispensed Refills Start Date End Date spironolactone (Aldactone) 25 mg TabletIndications:Alcohol ic cirrhosis, unspecified whether ascites present Take 2 tablets by mouth once daily 60 tablet 07/29/2022 Spiriva Respimat 1.25 mcg/actuation Mist INHALE 2 SPRAY(S) BY MOUTH ONCE DAILY 02/03/2022 furosemide (Lasix) 40 mg Tablet Take 40 mg by mouth daily. 02/01/2022 albuteroL 90 mcg/actuation HFA Aerosol Inhaler Inhale 2 puffs into the lungs every 4 hours as needed for Wheezing. Use with spacer fluticasone (FLONASE) 50 mcg/actuation Andreas, Suspension 2 sprays by Each Nare route daily. 11/01/2015 EPINEPHrine (EPIPEN) 0.3 mg/0.3 mL (1:1,000) Auto-Injector Inject 0.3 mg into the muscle once as needed. 06/18/2015 documented as of this encounter Plan of Treatment Not on file documented as of this encounter Procedures Procedure Name Priority Date/Time Associated Diagnosis Comments ABSCESS/WOUND ASPIRATE CULTURE Routine 02/16/2023 1:09 PM EDT documented in this encounter Results * (ABNORMAL) Abscess/Wound Aspirate Culture (02/16/2023 1:09 PM EDT) Abscess/Wound Aspirate Culture Many Actinotignum schaalii : probable normal cutaneous ryan(A) [facility] Gram Stain Many Neutrophils seen Many Gram Positive Cocci seen Few Gram Negative Rods seen (A) [facility] Organism Actinotignum schaalii(A) [facility] Organism Gram Positive Cocci(A) [facility] Organism Gram Negative Rods(A) [facility] Abscess BREAST STRUCTURE / Unknown 02/16/2023 1:09 PM EDT 02/16/2023 4:57 PM EDT Comment:Breast Cyst Narrative Resulting Agency Comment Spec In Lab Ravin Simons DO MICROBIOLOGY - GENERAL ORDERABLES [facility] [place] [address] documented in this encounter Visit Diagnoses Not on filedocumented in this encounter Care Teams Carrier Operator Relationship Specialty Start Date End Date Karin Cronin APRN PCP - General Family Medicine 09/05/15 documented as of this encounter
--- OUTSIDE RECORDS SUMMARY | 2024-06-06 01:04 | XMS_ITS | Encounter Summary ---
Author Organization [facility] Address [facility] [place] [address] Care Team Providers Care Manager Proposal Name Role Phone Roseanne Karin GILES Primary Care Provider +1- [phone] Encounter Details Date Type Department Care Team (Latest Contact Info) Description 02/04/2023 12:11 PM EDT - 02/04/2023 11:59 PM EDT Hospital [place] [phone] Discharge Disposition: Home Social History Tobacco Use [...] Use with spacer fluticasone (FLONASE) 50 mcg/actuation [place], Suspension 2 sprays by Each Nare route daily. 11/01/2015 EPINEPHrine (EPIPEN) 0.3 mg/0.3 mL (1:1,000) Auto-Injector Inject 0.3 mg into the muscle once as needed. 06/18/2015 documented as of this encounter Plan of Treatment Not on file documented as of this encounter Procedures Procedure Name Priority Date/Time Associated Diagnosis Comments SURGICAL PATHOLOGY REPORT Routine 02/04/2023 8:41 AM EDT documented in this encounter Results * Surgical Pathology Report (02/04/2023 8:41 AM EDT) FINAL DIAGNOSIS (AP) [id number] ? Location: [facility] The signing pathologist has (i) examined the relevant preparation(s) for the specimen(s) and (ii) rendered or confirmed the diagnosis(es). . ?Surgical Pathology DIAGNOSIS Left breast ectatic duct, excision: - Focal atypical ductal hyperplasia (<1 mm) - Intraductal papilloma(s) with florid usual ductal hyperplasia - Lactiferous ducts with periductal sclerosis and chronic inflammation - Adenosis, columnar cell change/hyperplasia , apocrine metaplasia, and cysts Electronically signed by: ?Rosina CHILDERS, Frederic Mejia Verified: ??02/26/2023 8:44 ?? Pathologist Performed at: ??[facility] [place], [place] [address] Residential Sales Executive: Mike Howard MD, FCAP, ??CLIA Certificate: [id number] SPECIMEN(S) SUBMITTED A - Ectatic duct left breast, short stitch towards nipple, long stitch anterior Copy To; Karin Cronin CLINICAL INFORMATION Recurrent infection with cystic structure, last infection 3 weeks ago SPECIMEN PROCESSING A - Labeled/Fixative: Ectatic duct left breast, formalin. Quantity/Size/Weig ht: Single, 6 x 5 x 3 cm, 28.26 g. SPECIMEN DESCRIPTION Resection Specimen: Disrupted, lumpectomy. Specimen radiograph: N/a. Specimen Description: Yellow-bergeron, partially disrupted fibroadipose tissue, short stitch towards nipple, long stitch anterior. Anterior margin is inked blue, posterior margin is inked black, lateral margin is inked yellow, medial margin is inked red, towards nipple margin is inked orange and opposite to nipple margin is inked green. Tissue Sections: The specimen is serially sectioned perpendicular to the long axis into IX slices, each averaging 0.5 cm in thickness. Parenchyma: 95% yellow adipose tissue and 5% white-bergeron fibrous tissue. No gross lesions identified. Sections/Processin g: Entirely submitted in 25 cassettes as follows: ?A1-A3: Slice I, perpendicularly sectioned, towards nipple margin ?A4-A5: Slice II, A4: anterior, posterior and medial margin, A5: anterior, ? posterior and lateral margin ?A6-A7: Slice III, A6: anterior, posterior and medial margin, A7: anterior, ? posterior and lateral margin ?A8-A10: Slice IV, A8: anterior, posterior and medial margin, A9: anterior and ? posterior margin, A10: anterior, posterior and lateral margin ?A11-A13: Slice V, A11: anterior, posterior and medial margin, A12: anterior and ? posterior margin, A13: anterior, posterior and lateral margin ?A14-A17: Slice , A14: anterior, posterior and medial margin, A15-A16: anterior ? and posterior margin, A17: anterior, posterior and lateral margin ?A18-A21: Slice VII, A18: anterior, posterior and medial margin, A19-A20: anterior ? and posterior margin, A21: anterior, posterior and lateral margin ?A22-A24: Slice VIII, A22: anterior, posterior and medial margin, A23: anterior and ? posterior margin, A24: anterior, posterior and lateral margin ?A25: Slice IX, perpendicularly sectioned, opposite to nipple margin ??MV 02/26/2023 8:44 AM EDT [facility] 02/04/2023 8:41 AM EDT Ravin Simons DO PATHOLOGY/CYT OLOGY ORDERABLES [facility] [place] [address] documented in this encounter Visit Diagnoses Not on filedocumented in this encounter Care Teams Manager Proposal Relationship Specialty Start Date End Date Karin Cronin APRN PCP - General Family Medicine 09/05/15 documented as of this encounter
--- OUTSIDE RECORDS SUMMARY | 2024-06-06 01:04 | XMS_ITS | Encounter Summary ---
Author Organization [facility] [place] [address] Care Team Providers Care Assorter Laundry Name Role Phone Karin Cronin APRN Primary Care Provider +1- [phone] Encounter Details Date Type Department Care Team (Late st Contact Info) Description 02/16/2024 Interpretation Only [address] [phone] Karin Cronin APRN [address] [place] [address] Social History Tobacco Use Types [...] Name Priority Date/Time Associated Diagnosis Comments XR LUMBAR SPINE 2 OR 3 VIEWS Routine 02/16/2024 10:39 AM EDT documented in this encounter Results * XR Lumbar Spine 2 Or 3 Views (Generic) (02/16/2024 10:39 AM EDT) PT CLASS O RAD ADMITDTTM [id number] RAD PT RAD MD INFO [id number]^Boardma n^Karin RAD EXAM DESC [id number]^XR Spine Lumbosacral 2 or 3 Views^RIS RAD Anatomical Region Laterality Modality L-spine N/A Radiographic Tracie ging 02/16/2024 10:3 1 AM EDT Impressions 02/16/2024 11:16 AM EDT Grade 1 spondylolisthesis of L4. Degenerative disc disease L4-5. Osteoarthritis. Thank you for letting us participate in the care of this patient. ??If you are a health care provider and have any questions regarding this report, please contact the number below. ??For patients who have questions please contact the health home care companion that requested your imaging first. ? Electronically signed by: Celso Garcia MD, [facility] ([phone]), at 02/16/2024 11:16 AM Narrative 02/16/2024 11:16 AM EDT EXAMINATION: XR Spine Lumbosacral 2 or 3 Views CLINICAL HISTORY: Acute left sided low back pain with left-sided sciatica TECHNIQUE: 3 view lumbar spine COMPARISON: None FINDINGS: There is 6 mm anterolisthesis of L4. No other significant abnormality of alignment. No acute osseous finding. Mild disc space narrowing is present at L4-5. Degenerative disease demonstrated in the facet joints inferiorly. Procedure Note Celso Garcia MD - 02/16/2024 EXAMINATION: XR Spine Lumbosacral 2 or 3 Views CLINICAL HISTORY: Acute left sided low back pain with left-sidedsciatica TECHNIQUE: 3 view lumbar spine COMPARISON: None FINDINGS: There is 6 mm anterolisthesis of L4. No other significant abnormality of alignment. No acute osseous finding. Mild disc space narrowing is present at L4-5. Degenerative disease demonstrated in the facet joints inferiorly. IMPRESSION Grade 1 spondylolisthesis of L4. Degenerative disc disease L4-5. Osteoarthritis. Thank you for letting us participate in the care of this patient. If youare a health care provider and have any questions regarding this report,please contact the number below. For patients who have questions please contactthe health home care companion that requested your imaging first. Electronically signed by: Celso Garcia MD, [facility]([phone]), at 02/16/2024 11:16 AM Karin Cronin APRN IMG DX ORDERABLES documented in this encounter Visit Diagnoses Not on filedocumented in this encounter Care Teams Assorter Laundry Relationship Specialty Start Date End Date Karin Cronin APRN PCP - General Family Medicine 09/05/15 documented as of this encounter
--- OUTSIDE RECORDS SUMMARY | 2024-06-06 01:04 | XMS_ITS | Encounter Summary ---
Author Organization [facility] Address [facility] [place] [address] Care Team Providers Care Inventory Accountant Name Role Phone Karin Cronin APRN Primary Care Provider +1- [phone] Reason for Visit * Reason Comments Left Shoulder Pain doi 07/27/15 wc * Consultation (Routine) - Closed Specialty Diagnoses / Procedures Referred By Dustin jordan Referred To Contact Orthopaedic Surgery / Orthopaedics Diagnoses LEFT SHOULDER PAIN AND MRI SHOWS A TEAR TENDONITUS OF LEFT ROTATOR CUFF Karin Cronin APRN [address] [place] [address] Jose Murray MD [facility] [place] [address] Referral ID Status Reason Start Date Expiration Date V isits Requested Visits Authorized [id number] Closed Consult, Test & Treat [facility] 09/05/2015 09/04/2016 1 1 Encounter Details Date Type Department Care Team (Late st Contact Info) Description 09/19/2015 3:00 PM EST Office [place] [address] Jose Murray MD [facility] [place] [address] Adhesive capsulitis of left shoulder Social History Tobacco Use Types Packs/Day Years Used Date Smoking Tobacco: Every Day Cigarettes 0.5 40 Smokeless Tobacco: Never Tobacco Cessation:Ready to Q uit: Yes Alcohol Use Standard Drinks/Week Comments No 0 (1 standard drink = 0.6 oz pur e alcohol) Sex and Gender Information Value Date Recorded Sex Assigned at Not on file Gender Identity Not on file Sexual Orientation Not on file documented as of this encounter Last Filed Vital Signs Vital Sign Reading Time Taken Comments Blood Pressure 123/66 09/19/2015 2:34 PM EST Pulse 77 09/19/2015 2:34 PM EST Temperature - - Respiratory Rate - - Oxygen Saturation - - Inhaled Oxygen Concentration - - Weight 77.1 kg (170 lb) 09/19/2015 2:34 PM EST s tated Height 167.6 cm (5' 6) 09/19/2015 2:34 PM EST s tated Body Mass Index 27.44 09/19/2015 2:34 PM EST documented in this encounter Progress Notes * Thanh Silva MD - 09/19/2015 3:19 PM EST INITIAL ENCOUNTER NOTE: Ms. Ashton is a 50-year-old female who is a 50-year-old right-hand dominant female, who presents to clinic today for evaluation of left shoulder pain. She states that her pain started on 07/27/2015 after carrying a crate of water. She reports feeling a popping sensation as well as burn running down the lateral aspect of her shoulder down her arm. Since that time, she has had consistent pain in her left shoulder as well as numbness and tingling in the left arm. She denies any pre-morbid shoulder pain. She initially went to her PCP, who ordered imaging as well as started physical therapy. She has been doing approximately three sessions of physical therapy and has not noted any benefit of it yet. She continues to have numbness on the lateral aspect of her shoulder that radiates to the two ulnar digits on that side and she does have weakness; however, she feels like it is due to her pain in her left upper extremity. She also reports a history of neck pain as well. ALLERGIES: REVIEWED IN THE ED-H. MEDICATIONS: Lasix, spironolactone. PAST MEDICAL HISTORY: Liver cirrhosis, history of alcohol abuse, however, has been sober for the last 10 years, hypertension, thrombocytopenia, anemia. PAST SURGICAL HISTORY: Tubal ligation, diagnostic laryngoscopy for esophageal varices, vaginal hysterectomy, great toe fracture. 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 She does smoke half a pack a day. Quit drinking 10 years ago, but has a history of alcohol abuse. REVIEW OF SYSTEMS: Pertinent findings mentioned in the HPI. PHYSICAL EXAMINATION: General: Healthy-appearing, no apparent distress, appears stated age. Left upper extremity: No gross deformity was noted in the left upper extremity. No significant swelling, redness, erythema of the shoulder. Tenderness to palpation present along the midline of the cervical spine, left trapezius and left shoulder. Range of motion: The patient is able to forward flex to approximately 120 degrees. Passive flexion to 175 degrees. Shoulder abduction to 110 degrees. Passive abduction to 160 degrees. External rotation 60 degrees beyond neutral. Internal rotation to T10. Strength: 4/5 strength in all four muscle groups of the rotator; however, effort limited by pain in the left shoulder. Radial pulse is 2+. Sensation to light touch is intact distally in the entire left upper extremity. IMAGING: MRI of the left shoulder: No evidence of significant rotator cuff tear seen on imaging. There is some fraying of the subscapularis that is noted on these films. However, the majority of the tendon does remain intact at this time. No large effusion of the joint. No evidence of fracture or dislocation seen. No atrophy of the rotator cuff muscles. ASSESSMENT AND PLAN: Jana Ashton is a 50-year-old female with left shoulder pain sustained while working approximately two months ago, continues to have left shoulder pain, recently has started with physical therapy regimen. Her symptoms are likely due to developmental of adhesive capsulitis. She has lost a little of her ability to internally rotate her left shoulder. Since this time of injury, plan is to begin scheduled NSAID usage as long as her primary care physician agrees that she can start scheduled NSAIDs and continue with physical therapy. We will see her back in clinic in six to seven weeks' time for repeat evaluation to see how she is responding to treatment. At that time, we may consider doing the subacromial injection. Dr. Murray was present for all pertinent portions of this patient's interaction. * Jose Murray MD - 09/19/2015 3:17 PM EST CLARIFICATION NEEDED: PLEASE CHECK ONE BLANK. I performed a history and physical examination on Ms. Ashton. I have reviewed her studies. I have discussed her management with Dr. Thanh Silva. I have reviewed Dr. Silva's note and agree with the documented findings and plan of care. IMPRESSION: Status post what sounds like an axial load with increasing right shoulder pain. Clinical examination, I believe, is consistent with bursitis and impingement with a small amount of rotator cuff tendinopathy. In addition, I do think she is developing adhesive capsulitis. PLAN: We reviewed her history, her clinical examination, her studies, and looked at the shoulder models together. At this point, I think she would benefit by a regular course of nonsteroidal anti-inflammatory medications with <___> Roseanne's approval. In addition, I think she should have physical therapy to include modalities because of her inflammation. We will plan to check on her in six weeks or sooner p.r.n. If she is not improved to her satisfaction, perhaps she would benefit by a subacromial injection. She knows to call if she has any questions or changes prior to that time. CC: Karni Cronin APRN documented in this encounter Plan of Treatment Not on file documented as of this encounter Visit Diagnoses Diagnosis Adhesive capsulitis of left shoulder Adhesive capsulitis of shoulder documented in this encounter Care Teams Inventory Accountant Relationship Specialty Start Date End Date Karin Cronin APRN PCP - General Family Medicine 09/05/15 documented as of this encounter
--- OUTSIDE RECORDS SUMMARY | 2024-06-06 01:04 | XMS_ITS | Encounter Summary ---
[place] [address] Care Team Providers Care Rocket Scientist Name Role Phone Karin Cronin APRN Primary Care Provider [phone]- [phone] Encounter Details Date Type Department Care Team (Late st Contact Info) Description 11/25/2022 Telephone [place] [address] Lena Brown Social History Tobacco Use Types [...] * Telephone Encounter - Lena Brown - 11/25/2022 12:40 PM EST Placed outgoing phone call to patient in order to schedule a procedure. Phone Call Outcome: Left voicemail asking for return call. This was the 2nd attempt If the call is returned, it can be handled by: Any Endoscopy Repairer Controller Tester documented in this encounter Plan of Treatment Not on file documented as of this encounter Visit Diagnoses Not on filedocumented in this encounter Care Teams Rocket Scientist Relationship Specialty Start Date End Date Karin Cronin APRN PCP - General Family Medicine 09/05/15 documented as of this encounter
--- OUTSIDE RECORDS SUMMARY | 2024-06-06 01:04 | XMS_ITS | Encounter Summary ---
Author Organization [facility] [place] [address] Care Team Providers Care Pillar Worker Name Role Phone ElginKarin dale TISHA Primary Care Provider +1- [phone] Reason for Visit * Reason Comments Left Shoulder Pain doi 07/27/15 Encounter Details Date Type Department Care Team (Late st Contact Info) Description 12/20/2015 10:30 AM EST Office [place] [address] Conchita Mendiola AUTOMATIC MAINTAINER [facility] [place] [address] Adhesive capsulitis of left shoulder (Primary Dx); Superior glenoid labrum lesion of left shoulder, subsequent encounter; Subacromial bursitis, left; Tendinopathy of left biceps; Impingement syndrome of shoulder, left [M75.42]; Biceps tendonitis, left [M75.22] Social History Tobacco Use Types Packs/Day Years [...] Sign Reading Time Taken Comments Blood Pressure 125/67 12/20/2015 10:42 AM EST Pulse 75 12/20/2015 10:42 AM EST Temperature - - Respiratory Rate - - Oxygen Saturation - - Inhaled Oxygen Concentration - - Weight 72.6 kg (160 lb) 12/20/2015 10:42 AM EST stated Height 167.6 cm (5' 6) 12/20/2015 10:42 AM EST stated Body Mass Index 25.82 12/20/2015 10:42 AM EST documented in this encounter Progress Notes * Conchita Mendiola, AUTOMATIC MAINTAINER - 12/20/2015 10:52 AM EST Chief Complaint: LEFT shoulder pain. F/u appointment. 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 Since I saw raymond, She has had a LEFT shoulder fluoroscopically guided GH cortisone injection. The injection washelpful for ROM, yet her anterior shoulder pain at the biceps persists as well as pain with over head activity. There is also a persistent burning pain over the lateral deltoid. She has had several sessions of PT working on ROM and again her ROM is improved. No mechanical or locking complaints. HerPT is using some iontophoresis patches over the proximal biceps region as well. Oral Ibuprofen has been helpful as well and she has been using this as directed from her PCP. No interval falls injuries or infections. There is no radicular component to her LEFT shoulder pain. There is no neck pain. No change in the occasional numbness and tingling in her fourth and fifth finger unchanged today. Again, there is no history of cubital tunnel syndrome. Her chronic medical illnesses are stable otherwise. ROS: Denies fever, chills, nausea, vomiting, vision change, shortness of breath, chest pain, visionchanges, headaches, bowel or bladder problem, ear, nose, sinus problem, neuro or psychiatric, or endocrine disorder not addressed above. Patient's medications, allergies, past medical, surgical, social and family histories were reviewedand updated as appropriate. PHYSICAL EXAMINATION: Filed Vitals: 12/20/15 1042 BP: 125/67 Pulse: 75 Height: 167.6 cm (5' 6) Weight: 72.576 kg (160 lb) Body mass index is 25.84 kg/(m^2). General: This is a very pleasant 50-year-old clzqf-zcyo-ijreksae female no acute distress she is alert and oriented ??3 affect is bright and appropriate. She is here with her today. HEENT - normocephalic, atraumatic, sclera clear c-spine with mild stiffness with negative Spurling's. Chest: RR: 12. Non-labored. Orthopedic left shoulder exam: LEFT shoulder ROM: She continues with improved active range of motion today noted active forward flexion to 160 degrees with a soft end endpoint. There is a painful arc. Abduction to approximately 150?? with a painful arc. External rotation to approximate 70?? with a soft endpoint. Internal rotation to approximately T11. There is no change in the tenderness at the proximal biceps tendon with a positive speeds Yergason's and Crawford's. There is tenderness at the anterior glenohumeral joint. There is mild tenderness of the lateral deltoid. Posture is slightly improved from her previous appointment. Rotator cuff impingement signs: There is a mildly positive Neer and a negative Ray. There is no tenderness at the acromioclavicular joint. IMAGING: NO new images today. I once again reviewed the LEFT shoulder MRI scan from an OUTSIDE provider: Left shoulder MRI scan reviewed image by image in the office today from an outside provider. There is evidence of rotator cuff tendinopathy with mild fraying, mild acromioclavicular joint degenerative changes, probable SLAP tear, proximal biceps tendinopathy without subluxation rupture. ASSESSMENT: This is a very pleasant 50-year-old tpqfg-rckg-xdsiypxg female with a work-related leftshoulder injury with improvement of ROM after a fluoroscopically guided GH cortisone injection. However the LEFT shoulder proximal Biceps tendon symptoms continue with no mechanical complaints with kn own SLAP tear. Mild rotator cuff impingement noted clinically. PLAN: I reviewed my findings in the office today with both MRI scan and clinical exam. Treatment options and risks/benefits discussed from least to most invasive. Patient understands options. At thistime, We can offer her a LEFT shoulder subacromial cortisone injection to see more clearly where her symptoms are generating from. She agrees and see procedure below. She has done well with resolvingadhesive capsulitis. She will continue with her comprehensive physical therapy program. Once again,I did ask her to keep a close diary of her symptoms post injection as this is both a diagnostic andtherapeutic injection. She is not able to work at this time due to her persistent pain and inability to lift 50 pounds. At this time, she will remain out of work as she states there is no light duty work available to her at her [employer] company. [facility] forms completed today. The follow plan is to see her in 4-6 weeks post-injection to discuss further treatment options with Dr. Murray. She may be a candidate for a LEFT shoulder arthroscopy if her symptoms persist. We will need a LEFT shoulder x-ray ather next appointment, notation sent to the secretarial staff for scheduling. Pt agrees, questions solicited/answered, will return as scheduled and as needed for concerns or questions. Pt understands they may also call us prn for above. Procedure: LEFT shoulder subacromial cortisone injection Prior to beginning conversation was held regarding the risks and benefits of cortisone injection. Atimeout was held confirming the correct side and medication. After which using appropriate sterile technique, with betadine and methyl chloride spray was used to anesthetize the skin. This was followed by injection of 4 ml of 1 % Lidocaine plain, and 40 mg of Kenalog. The patient tolerated this procedure well. documented in this encounter Plan of Treatment Not on file documented as of this encounter Visit Diagnoses Diagnosis Adhesive capsulitis of left shoulder- Primary Adhesive capsulitis of shoulder Superior glenoid labrum lesion of left shoulder, subsequent encounter Subacromial bursitis, left Tendinopathy of left biceps Impingement syndrome of shoulder, left [M75.42] Biceps tendonitis, left [M75.22] documented in this encounter Administered Medications Inactive Administered Medications - up to 3 most recent administrations Medication Order MAR Action Action Date Dose Rate Site lidocaine (XYLOCAINE) 20 mg/mL (2 %) injection 80 mg 80 mg, Subdermal, ONCE, 1 dose, On Janet 12/20/15 at 1130, In-Office injection into the subacromial space of the shoulder., Routine Given 12/20/2015 11:10 AM EST 80 mg triamcinolone acetonide (KENALOG-40) injection 40 mg 40 mg, Intra-articular, ONCE, 1 dose, On Janet 12/20/15 at 1130, Routine Given 12/20/2015 11:10 AM EST 40 mg documented in this encounter Care Teams Pillar Worker Relationship Specialty Start Date End Date Karin Cronin APRN PCP - General Family Medicine 09/05/15 documented as of this encounter
--- OUTSIDE RECORDS SUMMARY | 2024-06-06 01:04 | XMS_ITS | Encounter Summary ---
[place] [address] Care Team Providers Care Acid Strength Inspector Name Role Phone Karin Cronin APRN Primary Care Provider +1- [phone] Reason for Visit * Reason Comments Medication Refill Encounter Details Date Type Department Care Team (Late st Contact Info) Description 03/26/2022 Refill [place] [address] Emery Elizabeth, PA [address] [place] [address] [place] [address] Alcoholic cirrhosis, unspecified whether ascites present Social [...] present documented in this encounter Care Teams Acid Strength Inspector Relationship Specialty Start Date End Date Karin Cronin APRN PCP - General Family Medicine 09/05/15 documented as of this encounter
--- OUTSIDE RECORDS SUMMARY | 2024-06-06 01:04 | XMS_ITS | Encounter Summary ---
[place] [address] Care Team Providers Care Hotel Service Manager Name Role Phone Roseanne, Karin TISHA Primary Care Provider +1- [phone] Encounter Details Date Type Department Care Team (Latest Contact Info) Description 02/10/2022 10:25 AM EDT Laboratory Appointment Lab [address] [place] [id number] Alcoholic cirrhosis, unspecified whether ascites present Social [...] Procedure Name Priority Date/Time Associated Diagnosis Comments A1AT GENOTYPE Routine 02/10/2022 10:36 AM EDT Alcoholic cirrhosis, unspecified whether ascites present HC A1AT (ALPHA-1 ANTITRYPSIN) Routine 02/10/2022 10:36 AM EDT Alcoholic cirrhosis, unspecified whether ascites present HEMOGRAM Routine 02/10/2022 10:36 AM EDT Alcoholic cirrhosis, unspecified whether ascites present DIFFERENTIAL, AUTOMATED Routine 02/10/2022 10:36 AM EDT Alcoholic cirrhosis, unspecified whether ascites present HC HEPATITIS C ANTIBODY Routine 02/10/2022 10:36 AM EDT Alcoholic cirrhosis, unspecified whether ascites present HC IRON BINDING CAPACITY Routine 02/10/2022 10:36 AM EDT Alcoholic cirrhosis, unspecified whether ascites present [id number] Routine 02/10/2022 1 0:36 AM EDT Alcoholic cirrhosis, unspecified whether ascites present HC HEPATITIS A, TOTAL Routine 02/10/2022 10:36 AM EDT Alcoholic cirrhosis, unspecified whether ascites present HC VENIPUNCTURE Routine 02/10/2022 10:36 AM EDT Alcoholic cirrhosis, unspecified whether ascites present HC CERULOPLASMIN Routine 02/10/2022 10:3 6 AM EDT Alcoholic cirrhosis, unspecified whether ascites present HC ALPHA FETOPROTEIN TUMOR MARKER Routine 02/10/2022 10:36 AM EDT Alcoholic cirrhosis, unspecified whether ascites present HC HEPATITIS B CORE AB Routine 10:36 AM EDT Alcoholic cirrhosis, unspecified whether ascites present HC PCH SMOOTH MUSCLE AB, SERUM Routine 02/10/2022 10:36 AM EDT Alcoholic cirrhosis, unspecified whether ascites present HC HEPATITIS B SURFACE AB Routine 02/10/2022 10:36 AM EDT Alcoholic cirrhosis, unspecified whether ascites present HC HEPATITIS B SURFACE AG Routine 02/10/2022 10:36 AM EDT Alcoholic cirrhosis, unspecified whether ascites present HC PROTHROMBIN TIME Routine 02/10/2022 1 0:36 AM EDT Alcoholic cirrhosis, unspecified whether ascites present HC CBC,PLT & AUTO DIFF Routine 10:36 AM EDT Alcoholic cirrhosis, unspecified whether ascites present HC FERRITIN, SERUM Routine 02/10/2022 10 :36 AM EDT Alcoholic cirrhosis, unspecified whether ascites present COMPREHENSIVE METABOLIC PANEL (NON-FASTING) Routine 02/10/2022 10:36 AM EDT Alcoholic cirrhosis, unspecified whether ascites present documented in this encounter Results * Differential, Automated (02/10/2022 10:36 AM EDT) Neutrophils % 62.4 % [facility] Neutr Abs (ANC) 5.35 1.70 - 6.10 x10(3)/[facility] Lymphocytes % 23.3 % [facility] Lymphocytes Abs 2.0 0.9 - 3.2 x10(3)/[facility] Monocytes % 9.3 % [facility] Monocyte Abs 0.8 0.3 - 0.9 x10(3)/[facility] Eosinophils % 4.2 % [facility] Eosinophils Abs 0.4 0.0 - 0.4 x10(3)/[facility] Basophils % 0.6 % [facility] Basophils Abs 0.0 0.0 - 0.1 x10(3)/[facility] Immature Gran % 0.20 % [facility] Comment: Immature granulocytes(IG's)percentage and absolute count will include metamyelocytes, myelocytes, and promyelocytes. Blood smears from CBCs yielding IG's will be scanned manually for concordance. If this scan disagrees with the automated IG or if promyelocytes are noted, a manual differential will be performed. Jana Gran Abs 0.02 0.00 - 0.04 x10(3)/[facility] Blood 02/10/2022 10:3 6 AM EDT 02/10/2022 10:50 AM EDT Narrative Resulting Agency Comment Spec In Lab Emery GUARDADO HEMATOLOGY ORDERABLE S [facility] [place] [address] * (ABNORMAL) Hemogram (02/10/2022 10:36 AM EDT) Pathologist [facility] WBC 8.6 4.0 - 9.5 x10(3)/[facility] RBC 5.21 4.00 - 5.21 x10(6)/[facility] Hemoglobin 17.8(H) 11.7 - 15.5 g/dL [facility] Hematocrit 50.5(H) 35.7 - 45.8 % [facility] MCV 96.9(H) 82.6 - 94.4 fL [facility] MCH 34.2(H) 27.1 - 32.0 pg [facility] MCHC 35.2(H) 31.7 - 35.0 g/dL [facility] Platelets 117(L) 145 - 357 x10(3)/[facility] RDWSD 46.9(H) 37.0 - 46.0 [facility] RDWCV 13.0 11.5 - 14.1 % [facility] MPV 10.6 7.6 - 12.9 [facility] nRBC % Auto 0.0 % [facility] nRBC Abs Auto 0.000 0.000 - 0.000 x10(3)/[facility] Blood 02/10/2022 10:3 6 AM EDT 02/10/2022 10:50 AM EDT Narrative Resulting Agency Comment Spec In Lab Emery GUARDADO HEMATOLOGY ORDERABLE S [facility] [place] [address] * A1AT Genotype (02/10/2022 10:36 AM EDT) A1AT Genotype A1AT (SERPINA1) GENOTYPING RESULTS: S ALLELE: NOT DETECTED Z ALLELE: NOT DETECTED INTERPRETATION: The absence of both the S and Z alleles in this patient along with a separate test showing normal levels of A1AT protein (145mg/dL) in this patient? s serum suggest this patient does not have an A1AT deficiency. Although the S and Z alleles were not detected by this test, the presence of other less common A1AT variants cannot be excluded. ??These results should be interpreted based on the complete clinical presentation which may warrant additional testing and/or a genetic consultation. METHOD: Two regions of interest in the serpin peptidase inhibitor, clade A (alpha-1 antiproteinase, antitrypsin), member 1 gene (SERPINA1), commonly alpha-1 anti-trypsin or A1AT) that are known to contain variant alleles resulting in the ? S? phenotype ([id number]:c.863 A>T; [id number]) and the ? Z? phenotype (c. 1096G>A; [id number]) are amplified and genotyped by two separate PCR assays each containing two primers for amplification and two probes for detection the normal and variant alleles. ??Genomic DNA used in this testing was isolated from peripheral blood. LIMITATIONS AND DISCLAIMERS: ??Although unlikely, rare variants or polymorphisms (known or unknown) have the potential to interfere with the performance of this test, producing false negative or false positive results. ??When genotyping results are not consistent with other clinical observations or test results, additional testing should be considered. This test was developed and its performance characteristics determined by the [facility] at [facility]. It has not been cleared or approved by the FDA. The laboratory is regulated under CLIA as qualified to perform high-complexity testing. This test is used for clinical purposes. It should not be regarded as investigational or for research. [facility] Comment: [VERIFIED DATE]02.12.22 Verified By:Jazmin PhD, Nilson Ennis Molecular Pathologist (Electronic Signature) Blood 02/10/2022 10:3 6 AM EDT 02/10/2022 1:02 PM EDT Narrative Resulting Agency Comment Spec In Lab Emery GUARDADO CHEMISTRY ORDERABLES [facility] [place] [address] * A1AT Serum Concentration (02/10/2022 10:36 AM EDT) A1AT 145 90 - 200 mg/dL [facility] Blood 02/10/2022 10:3 6 AM EDT 02/10/2022 10:50 AM EDT Narrative Resulting Agency Comment Spec In Lab Emery GUARDADO CHEMISTRY ORDERABLES [facility] [place] [address] * Comprehensive metabolic panel (non-fasting) (02/10/2022 10:36 AM EDT) Glucose Lvl 99 65 - 199 mg/dL [facility] Comment:Diabetes: >=200 mg/d L plus symptoms BUN 9 8 - 18 mg/dL [facility] Creatinine 0.91 0.70 - 1.20 mg/dL [facility] Sodium 141 135 - 145 mmol/L [facility] Potassium 3.9 3.5 - 5.0 mmol/L [facility] Comment: Please note: ??Patients with WBC >100,000 may have falsely elevated Potassium levels. ??For accurate Potassium quantification in these patients send serum separator tube (gold top) for subsequent determinations. ??Contact the Clinical Chemistry Laboratory if there are any questions. Chloride 105 98 - 107 mmol/L [facility] CO2 25 22 - 31 mmol/L [facility] Anion Gap 11 5 - 15 mmol/L [facility] Calcium 9.7 8.5 - 10.5 mg/dL [facility] Total Protein 7.7 6.1 - 8.0 g/dL [facility] Albumin 3.8 3.2 - 5.2 g/dL [facility] AST 25 0 - 30 unit/L [facility] ALT 14 0 - 30 unit/L [facility] Alk Phos 85 35 - 105 unit/L [facility] Total Bilirubin 1.2 0.2 - 1.3 mg/dL [facility] Estimated GFR 70 >=60 mL/min/1. 73 m?? [facility] Comment: This patient? s estimated [...] Carballo MD CHEMISTRY ORDERABLES Performing Organization Address [facility] Co de Phone Number [facility] [place] [address] * (ABNORMAL) Prothrombin Time (02/10/2022 10:36 AM EDT) PT 13.2(H) 9.4 - 12.5 sec [facility] INR 1.2 [facility] Comment: An INR <2.0 indicates adequate [...] MD HEMATOLOGY ORDERABLE S Performing Organization Address [facility] Co de Phone Number [facility] [place] [address] * AFP tumor marker (02/10/2022 10:36 AM EDT) AFP 5.5 <=8.3 ng/mL [facility] Blood 02/10/2022 10:3 6 AM EDT 02/10/2022 10:50 AM EDT Narrative Resulting Agency Comment Spec In Lab Brandy Carballo MD CHEMISTRY ORDERABLES Performing Organization Address [facility]/ZIP Co de Phone Number [facility] [place] [address] * Hepatitis C Antibody (02/10/2022 10:36 AM EDT) Hepatitis C Ab Negative Negative [facility] Blood 02/10/2022 10:3 6 AM EDT 02/10/2022 10:50 AM EDT Narrative Resulting Agency Comment Spec In Lab Brandy Carballo MD IMMUNOLOGY ORDERABLE S Performing Organization Address [facility] Co de Phone Number [facility] [place] [address] * Hepatitis B Surface Antigen (02/10/2022 10:36 AM EDT) HepB Surface Ag Negative Negative [facility] Blood 02/10/2022 10:3 6 AM EDT 02/10/2022 10:50 AM EDT Narrative Resulting Agency Comment Spec In Lab Brandy Carballo MD CHEMISTRY ORDERABLES Performing Organization Address [facility] Co de Phone Number [facility] [place] [address] * Hepatitis B Surface Antibody (02/10/2022 10:36 AM EDT) HepB Surface Ab Quant <3.5 IU/L [facility] Comment: HepB Surface Ab Quant: Unvaccinated: < 8.5 IU/L Vaccinated: > 11.5 IU/L HepB Surface Ab Negative [facility] Comment: Patient is presumed to be not vaccinated or immune to HBV infection. Expected Results: Vaccinated: Positive Unvaccinated: Negative Blood 02/10/2022 10:3 6 AM EDT 02/10/2022 10:50 AM EDT Narrative Resulting Agency Comment Spec In Lab Brandy Carballo MD IMMUNOLOGY ORDERABLE S Performing Organization Address City/[facility]/ZIP Co de Phone Number [facility] [place] [address] * Hepatitis B Core Antibody, Total (02/10/2022 10:36 AM EDT) Hep B Core Ab Negative Negative [facility] Blood 02/10/2022 10:3 6 AM EDT 02/10/2022 10:50 AM EDT Narrative Resulting Agency Comment Spec In Lab Brandy Carballo MD CHEMISTRY ORDERABLES Performing Organization Address City/[facility]/ZIP Co de Phone Number [facility] [place] [address] * Hepatitis A Antibody, Total (02/10/2022 10:36 AM EDT) Hepatitis A Ab Total Negative Negative [facility] Blood 02/10/2022 10:3 6 AM EDT 02/10/2022 10:50 AM EDT Narrative Resulting Agency Comment Spec In Lab Brandy Carballo MD IMMUNOLOGY ORDERABLE S Performing Organization Address City/[facility] Co de Phone Number [facility] [place] [address] * Ferritin (02/10/2022 10:36 AM EDT) Ferritin 211 30 - 400 ng/mL [facility] Comment: Pediatric reference ranges not verified at [facility], interpret with caution. Reference ranges for females greater than 50 years of age approach values for men, i.e., 30-400 ng/mL. Blood 02/10/2022 10:3 6 AM EDT 02/10/2022 10:50 AM EDT Narrative Resulting Agency Comment Spec In Lab Brandy Carballo MD CHEMISTRY ORDERABLES Performing Organization Address [facility] Co de Phone Number [facility] [place] [address] * Iron and TIBC (02/10/2022 10:36 AM EDT) Iron 109 30 - 150 mcg/dL [facility] TIBC 292 250 - 450 mcg/dL [facility] Iron Saturation 37 20 - 50 % [facility] Blood 02/10/2022 10:3 6 AM EDT 02/10/2022 10:50 AM EDT Narrative Resulting Agency Comment Spec In Lab Brandy Carballo MD CHEMISTRY ORDERABLES Performing Organization Address [facility] Co de Phone Number [facility] [place] [address] * Ceruloplasmin (02/10/2022 10:36 AM EDT) Ceruloplasmin 20.9 16.0 - 45.0 mg/dL [facility] Blood 02/10/2022 10:3 6 AM EDT 02/10/2022 10:50 AM EDT Narrative Resulting Agency Comment Spec In Lab Brandy Carballo MD CHEMISTRY ORDERABLES Performing Organization Address [facility] Co de Phone Number [facility] [place] [address] * Smooth Muscle Antibody (02/10/2022 10:36 AM EDT) Sm Muscle Ab Negative Negative [facility] Comment: Negative: No further testing will be performed ADDITIONAL INFORMATION This test was developed and its performance characteristics determined by [facility] in a manner consistent with CLIA requirements. This test has not been cleared or approved by the U.S. Food and Drug Administration. Test Performed by: [place] [address] Jewelry Mechanic: Carlos Manuel Burden M.D. Ph.D.; CLIA# [id number] Blood 02/10/2022 10:3 6 AM EDT 02/10/2022 3:58 PM EDT Narrative Resulting Agency Comment Spec In Lab Brandy Carballo MD IMMUNOLOGY ORDERABLE S Performing Organization Address City/[facility]/ZIP Co de Phone Number [facility] [place] [address] * Mitochondrial Antibody, M2 (02/10/2022 10:36 AM EDT) Mitochon Ab <0.1 <0.1 (Negative) [facility] Comment: Test Performed by: [place] [address] Jewelry Mechanic: Carlos Manuel Burden M.D. Ph.D.; CLIA# [id number] Blood 02/10/2022 10:3 6 AM EDT 02/10/2022 3:58 PM EDT Narrative Resulting Agency Comment Spec In Lab Brandy Carballo MD IMMUNOLOGY ORDERABLE S Performing Organization Address City/[facility]/ZIP Co de Phone Number [facility] [place] [address] documented in this encounter Visit Diagnoses Diagnosis Alcoholic cirrhosis, unspecified whether ascites present documented in this encounter Care Teams Hotel Service Manager Relationship Specialty Start Date End Date Karin Cronin APRN PCP - General Family Medicine 09/05/15 documented as of this encounter
--- OUTSIDE RECORDS SUMMARY | 2024-06-06 01:04 | XMS_ITS | Encounter Summary ---
Author Organization [facility] Address [facility] [address] Care Team Providers Care Wildlife Conservationist Name Role Phone [place], Karin TISHA Primary Care Provider +1- [phone] Reason for Visit * Reason Onset Date Comments Other 11/06/2015 Encounter Details Date Type Department Care Team (Late st Contact Info) Description 11/06/2015 Telephone [place] [phone] Conchita Mendiola APRN [facility] [place] [address] Other Social History Tobacco Use Types Packs/Day Years [...] encounter Miscellaneous Notes * Telephone Encounter - Anne Martines R - 11/06/2015 3:00 PM EST LM#1 Called patient to discuss oral sedation for her injection tomorrow, per Shantelle's request. The appt was originally booked without sedation as there was no time on the nursing schedule. We just want to make sure the patient is aware that no sedation will be given at the appt and either she will need to be ok without sedation, have brought her own medication, or reschedule the injection to another day when the nursing team is available. Should she call back and need to reschedule ok put through to fluoro, per Shantelle. documented in this encounter Plan of Treatment Not on file documented as of this encounter Visit Diagnoses Not on filedocumented in this encounter Care Teams Wildlife Conservationist Relationship Specialty Start Date End Date Karin Cronin APRN PCP - General Family Medicine 09/05/15 documented as of this encounter
--- OUTSIDE RECORDS SUMMARY | 2024-06-06 01:04 | XMS_ITS | Encounter Summary ---
Author Organization [facility] [place] [address] Care Team Providers Care Legal Support Assistant Name Role Phone BuhlerKarin dale GEOPHYSICAL PARTY CHIEF Primary Care Provider +1- [phone] Encounter Details Date Type Department Care Team (Late st Contact Info) Description 07/21/2023 Interpretation Only [address] [id number] Ravin Barkley, DO [address] [place] [address] Social History Tobacco Use Types Packs/Day Years [...] Name Priority Date/Time Associated Diagnosis Comments XR HAND MIN 3 VIEWS RIGHT STAT 07/21/2023 9:38 AM EDT documented in this encounter Results * XR Hand Min 3 views Right (Generic) (07/21/2023 9:38 AM EDT) PT CLASS E RAD ADMITDTTM RAD PT RAD MD INFO [id number]^S STEPH^BALJIT DESIR RAD EXAM DESC [id number]^XR RIGHT HAND ROUTINE 3+VIEWS^RIS RAD Anatomical Region Laterality Modality Hand Right Radiographic Tracie ging Impressions 07/21/2023 9:43 AM EDT Osteoarthropathy at right hand. No acute radiographic abnormality, specifically no MCP joint malalignment or fracture. Thank you for letting us participate in the care of this patient. ??If you are a health care provider and have any questions regarding this report, please contact the number below. ??For patients who have questions please contact the health home day care provider that requested your imaging first. ? Narrative 07/21/2023 9:43 AM EDT EXAMINATION: XR RIGHT HAND ROUTINE 3+VIEWS CLINICAL HISTORY: Fell, complaining of pain in region of fifth MCP joint TECHNIQUE: PA, oblique and lateral views right hand COMPARISON: Right wrist radiographs September 12, 2021 FINDINGS: Bones are intact with diffusely decreased mineralization. No erosion or periostitis. Mild joint space narrowing is accompanied by small osteophytes at the basal; first and second MCP and most interphalangeal joints. No subluxation. Soft tissues are normal. No subcutaneous air or radiodense foreign body. Procedure Note Mansi Flores MD - 07/21/2023 EXAMINATION: XR RIGHT HAND ROUTINE 3+VIEWS CLINICAL HISTORY: Fell, complaining of pain in region of fifth MCP joint TECHNIQUE: PA, oblique and lateral views right hand COMPARISON: Right wrist radiographs September 12, 2021 FINDINGS: Bones are intact with diffusely decreased mineralization. No erosion or periostitis. Mild joint space narrowing is accompanied by small osteophytes at thebasal; first and second MCP and most interphalangeal joints. No subluxation. Soft tissues are normal. No subcutaneous air or radiodense foreign body. IMPRESSION Osteoarthropathy at right hand. No acute radiographic abnormality,specifically no MCP joint malalignment or fracture. Thank you for letting us participate in the care of this patient. If youare a health care provider and have any questions regarding this report,please contact the number below. For patients who have questions please contactthe health home day care provider that requested your imaging first. Ravin Barkley DO IMG DX ORDERABL ES documented in this encounter Visit Diagnoses Not on filedocumented in this encounter Care Teams Legal Support Assistant Relationship Specialty Start Date End Date Karin Cronin APRN PCP - General Family Medicine 09/05/15 documented as of this encounter
--- OUTSIDE RECORDS SUMMARY | 2024-06-06 01:04 | XMS_ITS | Encounter Summary ---
Author Organization Formerly [facility] [address] Care Team Providers Care Director Nursery School Name Role Phone Karin Cronin APRN Primary Care Provider +1- [phone] Encounter Details Date Type Department Care Team (Late st Contact Info) Description 11/28/2021 Interpretation Only [address] [address] Karin Cronin APRN [address] [place] [address] Social History Tobacco Use Types [...] Procedure Name Priority Date/Time Associated Diagnosis Comments US ABDOMEN LIMITED Routine 11/28/2021 10 :09 AM EST documented in this encounter Results * US Abdomen Limited (11/28/2021 10:09 AM EST) PT CLASS O RAD ADMITDTTM RAD PT RAD INFO [id number]^B OARDMAN^MAUR EEN RAD EXAM DESC UABDLIM^US ABDOMEN LIMITED^RIS RAD Anatomical Region Laterality Modality Abdomen Ultrasound Impressions 11/28/2021 10:19 AM EST Liver steatosis. Prominent periportal collaterals, suggestive of cavernous transformation. Interval cholecystectomy. Thank you for letting us participate in the care of this patient. ??If you are a health care provider and have any questions regarding this report, please contact the number below. ??For patients who have questions please contact the health daycare teacher that requested your imaging first. ? Narrative 11/28/2021 10:19 AM EST EXAMINATION: US ABDOMEN LIMITED CLINICAL HISTORY: LFT elevation. ??Patient also has history of currhosis. TECHNIQUE: Ultrasound of the right upper quadrant was performed. COMPARISON: July 04, 2019, December 06, 2012 FINDINGS: The liver is not enlarged at 16 cm craniocaudally and demonstrates diffusely increased echogenicity ??without mass. Portal vein is patent with hepatopetal flow. A number of surrounding collaterals noted, suggestive of ongoing cavernous transformation. The gallbladder has been removed.. The common bile duct measures 3mm. The imaged portion of the pancreas is unremarkable. The pancreatic tail is obscured by overlying bowel gas. The right kidney is unremarkable without hydronephrosis and measures 12cm. Procedure Note Jerod Morrison MD - 11/28/2021 EXAMINATION: US ABDOMEN LIMITED CLINICAL HISTORY: LFT elevation. Patient also has history of currhosis. TECHNIQUE: Ultrasound of the right upper quadrant was performed. COMPARISON: July 04, 2019, December 06, 2012 FINDINGS: The liver is not enlarged at 16 cm craniocaudally anddemonstrates diffusely increased echogenicity without mass. Portal vein is patentwith hepatopetal flow. A number of surrounding collaterals noted, suggestiveof ongoing cavernous transformation. The gallbladder has been removed.. Thecommon bile duct measures 3mm. The imaged portion of the pancreas isunremarkable. The pancreatic tail is obscured by overlying bowel gas. The right kidney is unremarkable without hydronephrosis and measures 12cm. IMPRESSION Liver steatosis. Prominent periportal collaterals, suggestive of cavernous transformation. Interval cholecystectomy. Thank you for letting us participate in the care of this patient. If youare a health care provider and have any questions regarding this report,please contact the number below. For patients who have questions please contactthe health daycare teacher that requested your imaging first. Karin KRAFT US GEN ORDERAB LES documented in this encounter Visit Diagnoses Not on filedocumented in this encounter Care Teams Director Nursery School Relationship Specialty Start Date End Date Karin Cronin APRN PCP - General Family Medicine 09/05/15 documented as of this encounter
--- OUTSIDE RECORDS SUMMARY | 2024-06-06 01:04 | XMS_ITS | Encounter Summary ---
[place] [address] Care Team Providers Care Credit Representative Name Role Phone Karin Cronin APRN Primary Care Provider +1- [phone] Encounter Details Date Type Department Care Team (Late st Contact Info) Description 05/06/2022 Telephone [place] [address] Susan Westfall Social History Tobacco Use Types Packs/Day Years [...] encounter Miscellaneous Notes * Telephone Encounter - Susna Westfall - 05/06/2022 7:29 AM EDT Called pt to sched EGD w/ avail-had to lvm documented in this encounter Plan of Treatment Not on file documented as of this encounter Visit Diagnoses Not on filedocumented in this encounter Care Teams Credit Representative Relationship Specialty Start Date End Date Karin Cronin APRN PCP - General Family Medicine 09/05/15 documented as of this encounter
--- OUTSIDE RECORDS SUMMARY | 2024-06-06 01:04 | XMS_ITS | Encounter Summary ---
Author Organization [facility] [place] [address] Care Team Providers Care Pipe Setter Name Role Phone Roseanne Karin GILES Primary Care Provider +1- [phone] Encounter Details Date Type Department Care Team (Latest Contact Info) Description 09/06/2019 9:15 PM EDT - 09/06/2019 11:59 PM EDT [place] [phone] Discharge Disposition: Home Social History Tobacco Use [...] Date End Date fluticasone (FLONASE) 50 mcg/actuation Huntly, Suspension 2 sprays by Each Nare route [...] Associated Diagnosis Comments SURGICAL PATHOLOGY REPORT Routine 09/06/2019 9:40 AM EDT documented in this encounter Results * Surgical Pathology Report (09/06/2019 9:40 AM EDT) FINAL DIAGNOSIS (AP) [id number] ? Location: [facility] The signing pathologist has (i) examined the relevant preparation(s) for the specimen(s) and (ii) rendered or confirmed the diagnosis(es). . ?Surgical Pathology DIAGNOSIS Gallbladder: Chronic cholecystitis and cholelithiasis Electronically signed by: ??Eric Mendiola MD, I Verified: ??09/09/2019 ?Pathologist Performed at: ??-[facility] Dept. of Pathology, [place], [place] CLINICAL INFORMATION Specimen Submitted: A - Gallbladder Clinical History and Diagnosis: Biliary colic Referring Identifier: ?(not provided) Report to: Karin Cronin SPECIMEN PROCESSING A - Labeled/Fixative: Gallbladder, formalin. Quantity/Size: ??Single, 7.0 x 3.0 x 2.0 cm. Specimen Description: Gallbladder, received Intact. Serosa: Smooth, green Adventitia: Shaggy, yellow-bergeron Lumen contents: Green, watery, bile. Gallstones: Present: Multiple, black gallstones averaging, 0.3 cm Mucosa: Velvety, green Wall: 0.2 cm thick. Duct: 0.3 cm, patent. Ink Designation: The hepatic margin is inked black Sections/Processi ng: It Infrastructure Consultant sections in 1 cassettes as follows: ?A1: ??cystic duct margin and administrative representative mucosa. ??ejr 09/09/2019 12:34 PM EDT [facility] 09/06/2019 9:40 AM EDT Jason Ag DO PATHOLOGY/CYTOLOGY O RDERABLES [facility] [place] [address] documented in this encounter Visit Diagnoses Not on filedocumented in this encounter Care Teams Pipe Setter Relationship Specialty Start Date End Date Karin Cronin APRN PCP - General Family Medicine 09/05/15 documented as of this encounter
--- OUTSIDE RECORDS SUMMARY | 2024-06-06 01:04 | XMS_ITS | Encounter Summary ---
Author Organization [facility] [place] [address] Care Team Providers Care Size Cutter Name Role Phone Karin Cronin APRN Primary Care Provider +1- [phone] Encounter Details Date Type Department Care Team (Late st Contact Info) Description 09/07/2019 External [place] [address] Provider, Scanning Social History Tobacco Use Types Packs/Day Years [...] Priority Date/Time Associated Diagnosis Comments SURGICAL PATHOLOGY SCAN Routine 09/07/2019 documented in this encounter Results * Scan Doc: Surgical Pathology (09/07/2019) Historical Provider MD ZELAYA MGR SCAN EX T ORDR/RSLT documented in this encounter Visit Diagnoses Not on filedocumented in this encounter Care Teams Size Cutter Relationship Specialty Start Date End Date Karin Cronin APRN PCP - General Family Medicine 09/05/15 documented as of this encounter
--- OUTSIDE RECORDS SUMMARY | 2024-06-06 01:04 | XMS_ITS | Encounter Summary ---
[place] [address] Care Team Providers Care Gum Maker Name Role Phone Karin Cronin APRN Primary Care Provider +1- [phone] Reason for Visit * Reason Comments Medication Refill Encounter Details Date Type Department Care Team (Late st Contact Info) Description 07/29/2022 Refill [place] [address] Emery Elizabeth, PA [address] [place] [address] [place] [address] Alcoholic cirrhosis, unspecified whether ascites present Social [...] present documented in this encounter Care Teams Gum Maker Relationship Specialty Start Date End Date Karin Cronin APRN PCP - General Family Medicine 09/05/15 documented as of this encounter
--- OUTSIDE RECORDS SUMMARY | 2024-06-06 01:04 | XMS_ITS | Encounter Summary ---
Author Organization [facility] [place] [address] Care Team Providers Care Polisher Sand Name Role Phone [place], Karin TISHA Primary Care Provider +1- [phone] Encounter Details Date Type Department Care Team (Late st Contact Info) Description 11/27/2022 Interpretation Only [address] [address] Addis Cabrales APRN [address] [place] [address] Social History Tobacco Use Types Packs/Day Years [...] Name Priority Date/Time Associated Diagnosis Comments US BREAST SCAN LIMITED Routine 11/27/2022 9:44 AM EST documented in this encounter Results * US BREAST SCAN LIMITED UNILATERAL (11/27/2022 9:44 AM EST) PT CLASS O DH RAD ADMITDTTM DH RAD PT DH RAD INFO [id number]^B RISTOL^MCKENNA NE DH RAD EXAM DESC UBREASTL^US BREAST LIMITED^RIS DH RAD Anatomical Region Laterality Modality Breast Other Impressions 11/27/2022 10:26 AM EST A likely inflammatory intradermal nodule. BI-RADS Category 3. Probably benign. RECOMMENDATION: Surgical referral for biopsy and removal. Thank you for letting us participate in the care of this patient. ??If you are a health care provider and have any questions regarding this report, please contact the number below. ??For patients who have questions please contact the health lead care manager that requested your imaging first. ? Electronically signed by: Jerod Morrison MD, [facility] ([phone]), at 11/27/2022 10:26 AM Narrative 11/27/2022 10:26 AM EST EXAMINATION: US BREAST LIMITED CLINICAL HISTORY: Left breast mass,bilateral breast, left breast, firm and tender not [...] Note Jerod Morrison MD - 11/27/2022 EXAMINATION: US BREAST LIMITED CLINICAL HISTORY: Left breast mass,bilateral breast, left breast, firmand tender not completely mobile mass at 2oclock [...] patients who have questions please contactthe health lead care manager that requested your imaging first. Electronically signed by: Jerod Morrison MD, [facility]([phone]), at 11/27/2022 10:26 AM Addis Cabrales APRN PACS IMAGES documented in this encounter Visit Diagnoses Not on filedocumented in this encounter Care Teams Polisher Sand Relationship Specialty Start Date End Date Karin Cronin APRN PCP - General Family Medicine 09/05/15 documented as of this encounter
--- OUTSIDE RECORDS SUMMARY | 2024-06-06 01:04 | XMS_ITS | Encounter Summary ---
Author Organization Formerly [facility] [place] [address] Care Team Providers Care Loom Operator Apprentice Name Role Phone Unavailable Primary Care Provider Unavailabl e Encounter Details Date Type Department Care Team (Late st Contact Info) Description 09/01/2015 - 09/01/2015 11:59 PM EDT Hospital Encounter [place] [phone] [address] Hardeep Temporary Pain Discharge Disposition: Home Social History Tobacco Use Types Packs/Day Years Used Date Smoking Tobacco: Never Assessed Sex and Gender Information Value Date Recorded Sex Assigned at Not on file Gender Identity Not on file Sexual Orientation Not on file documented as of this encounter Medications at Time of Discharge Medication Sig Dispensed Refills Start Date End Date EPINEPHrine (EPIPEN) 0.3 mg/0.3 mL (1:1,000) Auto-Injector Inject 0.3 mg into the muscle once as needed. 06/18/2015 furosemide (LASIX) 20 mg Tablet Take 1 tablet by mouth daily. 07/12/2015 02/10/2022 acetaminophen-codeine (TYLENOL #3) 300-30 mg Tablet Take 1 tablet by mouth nightly as needed. 08/03/2015 10/30/2015 documented as of this encounter Plan of Treatment Not on file documented as of this encounter Procedures Procedure Name Priority Date/Time Associated Diagnosis Comments FILM LIBRARY STORAGE ONLY MR SHOULDER Routine 09/01/2015 12:00 AM EDT Pain documented in this encounter Results * Film Library- Storage only MR Shoulder (09/01/2015 12:00 AM EDT) Narrative [facility] - 09/06/2015 2:39 PM EDT See PACS for result report. Dr Fritz [facility] FILM LIBRARY ORD ERABLES [place], [place] documented in this encounter Visit Diagnoses Diagnosis Pain Generalized pain documented in this encounter
--- OUTSIDE RECORDS SUMMARY | 2024-06-06 01:05 | XMS_ITS ---
Author Organization [facility] Address [address] [place] [phone] Care Team Providers Care Sheet Metal Duct Installer Name Role Phone Karin Cronin Primary Care Provider [phone] REASON FOR VISIT update Social History Sex Assigned At : Social History Observation Description Sex Assigned At Female Encounters Encounter Location Date Provider Diagnosis [facility] [address] [place], [place] [id number] 05/30/2024 Karin Cronin Prescription Assista nce PA Assessments Encounter Date Diagnosis (ICD Code) Assessment Notes Treat ment Notes Treatment Clinical Notes 05/30/2024 Prescription Assistance (ICD9-CM - PA) Plan Of Treatment Next Appt Details Provider Name:Karin camejo, 07/14/2024 10:00:00 AM, [address], [place], [phone], Provider Name:Karin camejo, 05/25/2025 09:00:00 AM, [address], [place], [phone], Progress Notes * Jana ASHTON MDOB:[birth year] (58 yo F)Acc No.[id number]:05/30/2024 Patient:?Jana ASHTON :1965???Age:58 Y???Sex:Female Address:[place] [place], [address] Subjective: * Chief Complaints: * ??? update * Medical History:? * Surgical History:? * Hospitalization/Major Diagno stic Procedure:? * Medications:? Objective: * Vitals:? * Physical Examination:? Assessment: * Assessment: 1.?Prescription Assistance - PA (Primary)? Plan: * Treatment: * Procedure Codes:?[facility] Care C oordinator Phone Consultation * true * Date:? Generated for Julianne walden/Theresa/Lena on:?06/06/2024 01:03 AM EDT
--- OUTSIDE RECORDS SUMMARY | 2024-06-06 01:05 | XMS_ITS | Encounter Summary ---
Author Organization [facility] Address [address] [place] [address] Care Team Providers Care Local Delivery Truck Driver Name Role Phone Unknown, Provider Primary Care Provider [phone] Encounter Details Date Type Department Care Team (Late st Contact Info) Description 05/07/2021 Results Only [facility] - [facility] Lab - Main [address] [address] Unknown, Provider, Social History Tobacco Use Types Packs/Day Years [...] Procedure Name Priority Date/Time Associated Diagnosis Comments QUANTIFERON TB GOLD PLUS Routine 05/07/2021 10:43 EDT MEASLES IGG AB Routine 05/07/2021 10:43 EDT RUBELLA IGG ANTIBODY Routine 05/07/2021 10:43 EDT HEPATITIS B SURFACE ANTIBODY Routine 05/07/2021 10:43 EDT VARICELLA IGG ANTIBODY Routine 05/07/2021 10:43 EDT MUMPS ANTIBODY IGG Routine 05/07/2021 10 :43 EDT documented in this encounter Results * VARICELLA IGG ANTIBODY (05/07/2021 10:43 EDT) Varicella IgG Ab Positive Negative 05/07/2021 23:19 EDT [facility] Comment:Presumed immune to V aricella infection. 05/07/2021 10:4 3 EDT 05/07/2021 10:43 EDT [facility] - 05/10/2021 22:31 EDT Does PT Have a Latex Allergy? NO Provider Unknown MD IMMUNOLOGY AND SEROL OGY ORDERABLES Performing Organization Address [facility] [address]/ZIP Co de Phone Number [facility] [address] [place] [address] * MEASLES IGG AB (05/07/2021 10:43 EDT) RUBEOLA IGG ANTIBODY - [facility] Positive Negative 05/10/2021 22:31 EDT [facility] Comment:Presumed immune to M easles infection. 05/07/2021 10:4 3 EDT 05/07/2021 10:43 EDT [facility] - 05/10/2021 22:31 EDT Does PT Have a Latex Allergy? NO Provider Unknown MD IMMUNOLOGY AND SEROL OGY ORDERABLES Performing Organization Address [facility] Co de Phone Number [facility] [address] [place] [address] * MUMPS ANTIBODY IGG (05/07/2021 10:43 EDT) Mumps Ab, IgG, S Negative Negative 05/07/2021 23:20 EDT [facility] Comment:Indicates non-immuni ty. 05/07/2021 10:4 3 EDT 05/07/2021 10:43 EDT [facility] - 05/10/2021 22:31 EDT Does PT Have a Latex Allergy? NO Provider Unknown MD IMMUNOLOGY AND SEROL OGY ORDERABLES Performing Organization Address City/[facility] [address]/ZIP Co de Phone Number [facility] [address] [place], [place] [id number] * QUANTIFERON TB GOLD PLUS (05/07/2021 10:43 EDT) [facility] Mitogen Minus NIL Result 1.82 () IU/mL 05/09/2021 21:46 EDT [facility] Quantiferon Interpretation Negative Negative 05/09/2021 21:46 EDT [facility] Comment: No interferon-gamma response to M. tuberculosis antigens was detected. Latent infection with M. tuberculosis is unlikely. A single negative result does not exclude infection with M. tuberculosis. In patients at high risk for M.tuberculosis infection, a second test should be considered in accordance with the 2017 ATS/IDSA/CDC Clinical Practice Guidelines for Diagnosis of Tuberculosis in Adults and Children [Lewinsohn DM et. al. Clin. Infect. Dis. 2017;64(2):111-115]. The reference range for the 'TB1 Ag minus Nil Result' and 'TB2 Ag minus Nil Result' is an Interferon-gamma level <0.35 IU/mL. NIL Result 0.02 () IU/mL 05/09/2021 21:46 EDT [facility] Comment: Test Performed by: [facility] [place] [address] Gyroscopic Instrument Tester: Carlos Manuel Burden M.D. Ph.D.; CLIA# [id number] TB1 Ag minus Nil -0.01 () IU/mL 05/09/20 21:46 EDT [facility] TB2 Ag minus Nil 0.00 () IU/mL 05/09/20 21:46 EDT [facility] 05/07/2021 10:4 3 EDT 05/07/2021 10:43 EDT Narrative [facility] - 05/09/2021 21:46 EDT Does PT Have a Latex Allergy? NO Provider Unknown CHEMISTRY & BLOOD GA S ORDERABLES [facility] [address] [place] [address] * HEPATITIS B SURFACE ANTIBODY (05/07/2021 10:43 EDT) Hep B Surface Ab, Qualitative 0 05/07/2021 12:12 EDT [facility] Comment: ?Interpretative Guidelines < 5.00 mIU/mL = ?Negative Clinical Interpretation of Immune Status: Patient is considered to be not immune to infection with HBV. The results of this assay can be falsely lowered due to the consumption of Biotin. 05/07/2021 10:4 3 EDT 05/07/2021 10:43 EDT Narrative [facility] - 05/07/2021 12:12 EDT Does PT Have a Latex Allergy? NO Provider Unknown CHEMISTRY & BLOOD GA S ORDERABLES Performing Organization Address [facility] [address]/[facility] Co de Phone Number [facility] [address] [place] [phone] * RUBELLA IGG ANTIBODY (05/07/2021 10:43 EDT) RUBELLA IGG ANTIBODY - [facility] Positive 05/07/2021 11:52 EDT [facility] Comment: Expected value: Positive The presence of Rubella IgG suggest immunity against rubella 05/07/2021 10:4 3 EDT 05/07/2021 10:43 EDT Narrative [facility] - 05/07/2021 11:52 EDT Does PT Have a Latex Allergy? NO Provider Unknown CHEMISTRY & BLOOD GA S ORDERABLES [facility] [address] [place] [address] documented in this encounter Visit Diagnoses Not on filedocumented in this encounter Care Teams Local Delivery Truck Driver Relationship Specialty Start Date End Date Unknown, Provider, PCP - General 09/06/14 documented as of this encounter
--- OUTSIDE RECORDS SUMMARY | 2024-06-06 01:05 | XMS_ITS ---
Author Organization [facility] Address [address] [place] [phone] Care Team Providers Care Furniture Designer Name Role Phone Karin Cronin Primary Care Provider REASON FOR VISIT New order needed with corrected code for insurance coverage Social History Sex Assigned At : Social History Observation Description Sex Assigned At Female Encounters Encounter Location Date Provider Diagnosis [facility] [address], [place] [phone] 05/24/2024 Karin Boseman Cigarette smoker F17.210 Assessments Encounter Date Diagnosis (ICD Code) Assessment Notes Treatment Notes Treatment Clinical Notes 05/24/2024 Cigarette smoker (ICD-10 - F17.210) Plan Of Treatment Pending Test Test Name Order Date CT Chest Low Dose Lung Cancer Screening 05/24/2024 Next Appt Details Provider Name:Karin camejo, 07/14/2024 10:00:00 AM, [address] [place], [place], [phone], Provider Name:Karin camejo, 05/25/2025 09:00:00 AM, [address] [place], [place], [phone], Progress Notes * Jana ASHTON MDOB:[birth year] (58 yo F)Acc No.[id number]:05/24/2024 Patient:?Jana ASHTON :1965???Age:58 Y???Sex:Female Address:[address] [place], [address] Subjective: * Chief Complaints: * ???New order needed with cor rected code for insurance coverage * Medical History:? * Surgical History:? * Hospitalization/Major Diagno stic Procedure:? * Medications:? Objective: * Vitals:? * Physical Examination:? Assessment: * Assessment: 1.?Cigarette smoker - F17.21 0 (Primary)? Plan: * Treatment: * Procedure Codes:? * true * Date:? Generated for Julianne walden/Theresa/Lena on:?06/06/2024 01:04 AM EDT
--- OUTSIDE RECORDS SUMMARY | 2024-06-06 01:05 | XMS_ITS ---
Author Organization [facility] Address [address] [place] [phone] Care Team Providers Care Senior Software Development Engineer Name Role Phone Karin Cronin Primary Care Provider REASON FOR VISIT 05/30- Spiriva Social History Sex Assigned At : Social History Observation Description Sex Assigned At Female Encounters Encounter Location Date Provider Diagnosis [facility] [address], [place] [phone] 05/26/2024 Karin Cronin Plan Of Treatment Next Appt Details Provider Name:Karin camejo, 07/14/2024 10:00:00 AM, [address] [place], [place], [phone], Provider Name:Karin camejo, 05/25/2025 09:00:00 AM, [address] [place], [place], [phone], Progress Notes * Jana ASHTON MDOB:[birth year] (58 yo F)Acc No.[id number]:05/26/2024 Patient:?SHAW Jana Valencia :1965???Age:58 Y???Sex:Female Address:[address] [place], [address] * true * Date:? Generated for Julianne walden/Theresa/eTransmitting on:?06/06/2024 01:04 AM EDT
--- OUTSIDE RECORDS SUMMARY | 2024-06-06 01:05 | XMS_ITS | Continuity of Care Document ---
Author Organization [facility] Address [address] [place] [address] Care Team Providers Care Streaming Media Specialist Name Role Phone Karin Cronin Primary Care Physician [phone] Encounter [facility] [id number] Date(s): 12/28/23 - 12/28/[address] [address] Discharge Disposition: Home or Self Care Attending Physician: Karin Cronin Admitting Physician: Karin Cronin Referring Physician: Karin Cronin Results Radiology Reports * Exam Date Time Procedure Performing Provider Status 12/28/23 10:51 AM XR Tibia/Fibula Left Guillermina, [place]; Au th (Verified) Notes: (XR Tibia/Fibula Left) Reason For Exam: fall XR Tibia/Fibula Left EXAMINATION: XR Tibia/Fibula Left CLINICAL HISTORY: fall, , entered by ordering service TECHNIQUE: Tibia and fibula, 2 view[s] COMPARISON: none FINDINGS: Bones No acute fracture or periostitis. Joints Knee- Partially included total knee arthroplasty Ankle-congruent. Soft Tissue No soft tissue air or foreign body detected. IMPRESSION: No acute fracture or periostitis. Thank you for letting us participate in the care of this patient. If you are a health care provider and have any questions regarding this report, please contact the number below. For patients who have questions please contact the health attending ambulatory care that requested your imaging first. Final Dictated by: Artur Marcano Dictated DT/TM: 12/28/2023 12:17 pm Signed by: Artur Marcano Signed (Electronic Signature): 12/28/2023 10:51 am Transcribed by: ANOOP Social History Social History Type Response Sex Female Patient Care team information Care Team Personnel Name: Karin Cronin Position: No Access Member Role: Primary Care Physician Address: Address: [address] [place] [id number]
--- OUTSIDE RECORDS SUMMARY | 2024-06-06 01:05 | XMS_ITS | Encounter Summary ---
Author Organization [facility] Address [address] [place] [address] Care Team Providers Care Brewery Representative Name Role Phone Unknown, Provider Primary Care Provider Encounter Details Date Type Department Care Team (Late st Contact Info) Description 06/19/2020 Results Only Imaging [facility] Radiology Results [address] [place] [address] Luz Martinez MD [address] [place], [place] [id number] Social History Tobacco Use Types Packs/Day Years [...] Name Priority Date/Time Associated Diagnosis Comments XR KNEE LEFT 1-2 VIEWS 06/19/2020 10:51 EDT documented in this encounter Results * XR KNEE LEFT 1-2 VIEWS (06/19/2020 10:51 EDT) Anatomical Region Laterality Modality Lower Extremities Left Computed Radio graphy 06/19/2020 10:4 8 EDT Narrative 06/19/2020 10:51 EDT ? EXAM: RADIOLOGY/KNEE LEFT 1-2 VIEW ?EX. D/ (1430) ? CLINICAL INFORMATION: ? ARTHRITIS ? INDICATION: ARTHRITIS . ? COMPARISON: None. ? TECHNIQUE: Two views of the left knee. ? FINDINGS: ? Chondrocalcinosis of the medial and lateral meniscus. Minimal ? degenerative arthrosis of the tibiofemoral and patellofemoral joints. ? Normal bone density. No fracture or osteonecrosis. ? IMPRESSION: Minimal degenerative arthrosis and mild ? chondrocalcinosis. ? REPORT SIGNED IN OTHER VENDOR SYSTEM 06/19/2020 ?Reported By: Eric Forman MD ? CC: ? Transcribed Date/Time: 06/19/2020 (1051) ? Technology Infusion Specialist: ? Printed Date/Time: 06/19/2020 (1051) ? PAGE 1 ? Signed Report ? Procedure Note Eric Forman MD - 06/19/2020 EXAM: RADIOLOGY/KNEE LEFT 1-2 VIEW EX. D/ (1430) CLINICAL INFORMATION: ARTHRITIS INDICATION: ARTHRITIS . COMPARISON: None. TECHNIQUE: Two views of the left knee. FINDINGS: Chondrocalcinosis of the medial and lateral meniscus. Minimal degenerative arthrosis of the tibiofemoral and patellofemoraljoints. Normal bone density. No fracture or osteonecrosis. IMPRESSION: Minimal degenerative arthrosis and mild chondrocalcinosis. REPORT SIGNED IN OTHER VENDOR SYSTEM 06/19/2020 Reported By: Eric Forman MD CC: Transcribed Date/Time: 06/19/2020 (1051) Technology Infusion Specialist: Printed Date/Time: 06/19/2020 (8764) PAGE 1 Signed Report Luz Martinez MD IMG DIAGNOSTIC IMAG ING ORDERABLES documented in this encounter Visit Diagnoses Not on filedocumented in this encounter Care Teams Brewery Representative Relationship Specialty Start Date End Date Unknown, Provider, PCP - General 09/06/14 documented as of this encounter
--- OUTSIDE RECORDS SUMMARY | 2024-06-06 01:05 | XMS_ITS | Continuity of Care Document ---
Author Organization [facility] Address [address] [place] [id number] Care Team Providers Care Sports Team Marketing Intern Name Role Phone Karin Cronin Primary Care Physician [phone] Encounter [facility] [id number] Date(s): 02/16/24 - 02/16/[address] [address]- Discharge Disposition: Home or Self Care Attending Physician: Karin Cronin Admitting Physician: Karin Cronin Referring Physician: Karin Cronin Results Radiology Reports * Exam Date Time Procedure Performing Provider Status 02/16/24 10:39 AM XR Spine Lumbosacral 2 or 3 Views Celina Cesar; Auth (Verified) Notes: (XR Spine Lumbosacral 2 or 3 Views) Reason For Exam: Acute left sided low back pain with left-sidedsciatica XR Spine Lumbosacral 2 or 3 Views EXAMINATION: XR Spine Lumbosacral 2 or 3 Views CLINICAL HISTORY: Acute left sided low back pain with left-sided sciatica TECHNIQUE: 3 view lumbar spine COMPARISON: None FINDINGS: There is 6 mm anterolisthesis of L4. No other significant abnormality of alignment. No acute osseous finding. Mild disc space narrowing is present at L4-5. Degenerative disease demonstrated in the facet joints inferiorly. IMPRESSION: Grade 1 spondylolisthesis of L4. Degenerative disc disease L4-5. Osteoarthritis. Thank you for letting us participate in the care of this patient. If you are a health care provider and have any questions regarding this report, please contact the number below. For patients who have questions please contact the health home day care provider that requested your imaging first. Electronically signed by: Celso Garcia MD, [facility] ([phone]), at 02/16/2024 11:16 AM Final Dictated by: DomainMartinar, Generated Dictated DT/TM: 02/16/2024 11:21 am Signed by: Artur Marcano Signed (Electronic Signature): 02/16/2024 10:31 am Transcribed by: ANOOP Social History Social History Type Response Sex Female Patient Care team information Care Team Personnel Name: Karin Cronin Position: No Access Member Role: Primary Care Physician Address: Address: [address] [place] [address]
--- OUTSIDE RECORDS SUMMARY | 2024-06-06 01:05 | XMS_ITS | Encounter Summary ---
Author Organization [facility] Address [address] [place] [address] Care Team Providers Care Spiral Winding Machine Helper Name Role Phone Unknown, Provider Primary Care Provider Encounter Details Date Type Department Care Team (Latest Contact Info) Description 10/31/2014 14:07 EST - 10/31/2014 23:[address] [facility] [address] [place] [address] Unknown, Provider, Discharge Disposition: Home or Self Care Social History Tobacco Use Types Packs/Day Years Used Date Smoking Tobacco: Never Assessed Sex and Gender Information Value Date Recorded Sex Assigned at Not on file Gender Identity Not on file Sexual Orientation Not on file documented as of this encounter Discharge Disposition Disposition Code Departure Means Destination Home or Self Usp documented in this encounter Plan of Treatment Not on file documented as of this encounter Visit Diagnoses Not on filedocumented in this encounter Care Teams Spiral Winding Machine Helper Relationship Specialty Start Date End Date Unknown, Provider, PCP - General 09/06/14 documented as of this encounter
--- OUTSIDE RECORDS SUMMARY | 2024-06-06 01:05 | XMS_ITS | Encounter Summary ---
Author Organization [facility] Address [address] [place] [address] Care Team Providers Care Audio Visual Technician Name Role Phone Unavailable Primary Care Provider Unavailabl e Encounter Details Date Type Department Care Team (Latest Contact Info) Description 08/29/2014 12:17 EDT - 08/29/2014 23:59 EDT Hospital Encounter [facility] [address] [place] [address] Unknown, Provider, Discharge Disposition: Home or Self Care Social History Tobacco Use Types Packs/Day Years Used Date Smoking Tobacco: Never Assessed Sex and Gender Information Value Date Recorded Sex Assigned at Not on file Gender Identity Not on file Sexual Orientation Not on file documented as of this encounter Discharge Disposition Disposition Code Departure Means Destination Home or Self Longterm documented in this encounter Plan of Treatment Not on file documented as of this encounter Visit Diagnoses Not on filedocumented in this encounter
--- OUTSIDE RECORDS SUMMARY | 2024-06-06 01:05 | XMS_ITS | Referral Summary ---
Author Organization [facility] Address [address] [place] [address] Care Team Providers Care Tower Equipment Installer Name Role Phone Unknown, Provider Primary Care Provider [phone] Social History Tobacco Use Types Packs/Day Years Used Date Smoking Tobacco: Never Assessed Interpersonal Safety Answer Date Record ed Physically Hurt Never 06/22/2020 Verbally Threaten Not on file 06/22/2020 Sex and Gender Information Value Date Recorded Sex Assigned at Not on file Gender Identity Not on file Sexual Orientation Not on file Plan of Treatment Not on file Care Teams Tower Equipment Installer Relationship Specialty Start Date End Date Unknown, Provider, PCP - General 09/06/14
--- OUTSIDE RECORDS SUMMARY | 2024-06-06 01:05 | XMS_ITS | Continuity of Care Document ---
Author Organization [facility] Address [address] [place] [phone] Care Team Providers Care Physics Tutor Name Role Phone Karin Cronin Primary Care Physician [phone] Encounter [facility] [id number] Date(s): 05/10/24 - 05/10/[address] [address]- Discharge Disposition: Home or Self Care Attending Physician: Nilson Valdez Admitting Physician: Nilson Valdez Referring Physician: Karin Cronin Results Radiology Reports * Exam Date Time Procedure Performing Provider Status 05/10/24 12:42 PM XR Finger(s) 2+ Views Right Celina Conde i; Auth (Verified) Notes: (XR Finger(s) 2+ Views Right) Reason For Exam: pain specific to the right IP joint after tugging injury. assess for fx or dislocation at IP Joint XR Finger(s) 2+ Views Right EXAMINATION: XR Finger(s) 2+ Views Right CLINICAL [...] 1st metacarpophalangeal joint, and thumb interphalangeal joint. IMPRESSION: 1. No acute fracture or malalignment. 2. Osteoarthropathy of the right thumb. Thank you for letting us participate in the care of this patient. If you are a health care provider and have any questions regarding this report, please contact the number below. For patients who have questions please contact the health patient care technician that requested your imaging first. Final Dictated by: Artur Marcano Dictated DT/TM: 05/10/2024 3:09 pm Signed by: Artur Marcano Signed (Electronic Signature): 05/10/2024 12:42 pm Transcribed by: ANOOP Social History Social History Type Response Sex Female Patient Care team information Care Team Personnel Name: Karin Cronin Position: No Access Member Role: Primary Care Physician Address: Address: [address] [place] [id number]
--- OUTSIDE RECORDS SUMMARY | 2024-06-06 01:05 | XMS_ITS | Encounter Summary ---
Author Organization [facility] Address [address] [place] [address] Care Team Providers Care Catheter Builder Name Role Phone Unknown, Provider Primary Care Provider Encounter Details Date Type Department Care Team (Late st Contact Info) Description 08/29/2014 Historical Results Only [facility] [place] [address] [place], [place] [address] Loren Olea PA [address] [place], [place] [id number] Social History Tobacco Use Types Packs/Day Years Used Date Smoking Tobacco: Never Assessed Sex and Gender Information Value Date Recorded Sex Assigned at Not on file Gender Identity Not on file Sexual Orientation Not on file documented as of this encounter Plan of Treatment Not on file documented as of this encounter Procedures Procedure Name Priority Date/Time Associated Diagnosis Comments CYTOLOGY (NON-GYNECOLOGIC INCLUDING FLUIDS AND FINE NEEDLE ASPIRATION)- ORDER ONLY Routine 08/29/2014 documented in this encounter Results * CYTOLOGY (NON-GYNECOLOGIC INCLUDING FLUIDS AND FINE NEEDLE ASPIRATION)- ORDER ONLY (08/29/2014) 08/29/2014 08/30/2014 8:3 1 EDT Royal [facility] - 08/30/2014 14:53 EDT ----- ------- Name: JANA ASHTON ?: 63 ?Age/Sex: 54/F ?Unit#: [id number] ? Loc: LAB.OPX ? Status: REG REF ?? Reg Date: 08/29/14 ? Pt.Phone Number: ? ----- ------- Specimen: [id number] ? STATUS: SOUT ?Spec Date:08/29/14 ? Physician Copies: ?Loren Olea Tissues: ? Breast Smear ? CPT: 22986 ?? Units: ??1 ----- ------- ?? NON OVERHEAD CRANE INSPECTOR CYTOLOGY DIAGNOSIS Breast discharge, laterality not specified: - Anucleate squames and squamous cells present in a background of acute inflammation. ??SEE COMMENT. COMMENT: No ductal epithelial cells are identified. ??Findings suggest an inflammatory lesion. ??Diagnostic considerations would include mammary duct ectasia or subareolar abscess. ??The presence of bacteria cannot be excluded (refer to microbiology workup). Correlation with the clinical and radiologic impressions is needed. ??Consider further sampling if there is an associated mass lesion. ----- ------- ? SPECIMEN DESCRIPTION ? 30mL of cytolyt fluid were received and processed by selective ?? cellular enhancement technique. Signed ____(signature on file)____ Nallely Crabtree M.D. 08/30/14 By the signature above, the attending physician certifies that he/she has personally conducted a gross and/or microscopic examination of the described specimens and rendered or confirmed the above diagnosis. Test Performed by [facility], [address] [facility] [address] Potable Water Treatment Operator: Nallely Crabtree MD PHD ----- ------- Loren GUARDADO PATHOLOGY ORDERABLES [facility] documented in this encounter Visit Diagnoses Not on filedocumented in this encounter Care Teams Catheter Builder Relationship Specialty Start Date End Date Unknown, Provider, PCP - General 09/06/14 documented as of this encounter
--- OUTSIDE RECORDS SUMMARY | 2024-06-06 01:05 | XMS_ITS | Encounter Summary ---
Author Organization [facility] Address [address] [place] [address] Care Team Providers Care Roof Truss Detailer Name Role Phone Unknown, Provider Primary Care Provider Encounter Details Date Type Department Care Team (Late st Contact Info) Description 10/31/2014 Historical Results Only [facility] [place] Radiology Results [address] [place] [address] Cassandra Story PA-C [address] [facility] [address] [place], [place] [address] Social History Tobacco Use Types Packs/Day Years Used Date Smoking Tobacco: Never Assessed Sex and Gender Information Value Date Recorded Sex Assigned at Not on file Gender Identity Not on file Sexual Orientation Not on file documented as of this encounter Plan of Treatment Not on file documented as of this encounter Procedures Procedure Name Priority Date/Time Associated Diagnosis Comments XR LUMBAR SPINE 2-3 VIEWS 10/31/2014 16:17 EST documented in this encounter Results * XR LUMBAR SPINE 2-3 VIEWS (10/31/2014 16:17 EST) Anatomical Region Laterality Modality Other 10/31/2014 16:1 7 EST Narrative 10/31/2014 16:22 EST ? EXAM: RADIOLOGY EXPRESS CARE/EXP CARE XR ??EX. D/ (1606) ? CLINICAL INFORMATION: ? BACK PAIN. DONE AT EXPCARE ? Indication: Back pain ? Comparison: None. ? Technique: AP and lateral views. ? Findings: There is minimal narrowing of the L4-L5 disc space and ? there is a grade 1 anterolisthesis of L4. L4-L5 and L5-S1 facet ? hypertrophy is present. There are minimal degenerative disc changes ? at L5-S1. The remaining lumbar discs have normal appearances. No ? fracture is identified. There is a mild to moderate scoliosis of the ? thoracic lumbar spine, apex to the left, centered at T12. There are ? mild degenerative changes within both sacroiliac joints. The sacrum ? is suboptimally visualized due to overlying bowel gas and stool. ? Impression: ? 1. Degenerative disc disease and facet arthrosis with a grade 1 ? anterolisthesis of L1. ? 2. Thoracolumbar scoliosis. ? REPORT SIGNED IN OTHER VENDOR SYSTEM 10/31/2014 ?Reported By: Eric Forman MD ? CC: ? Transcribed Date/Time: 10/31/2014 (1622) ? Insole Beveler: ? Printed Date/Time: 04/11/2019 (3634) ? PAGE 1 ? Signed Report ? Procedure Note Erci Forman MD - 09/13/2019 EXAM: RADIOLOGY EXPRESS CARE/EXP CARE XR EX. D/ (1606) CLINICAL INFORMATION: BACK PAIN. DONE AT [facility] Indication: Back pain Comparison: None. Technique: AP and lateral views. Findings: There is minimal narrowing of the L4-L5 disc space and there is a grade 1 anterolisthesis of L4. L4-L5 and L5-S1 facet hypertrophy is present. There are minimal degenerative disc changes at L5-S1. The remaining lumbar discs have normal appearances. No fracture is identified. There is a mild to moderate scoliosis ofthe thoracic lumbar spine, apex to the left, centered at T12. There are mild degenerative changes within both sacroiliac joints. The sacrum is suboptimally visualized due to overlying bowel gas and stool. Impression: 1. Degenerative disc disease and facet arthrosis with a grade 1 anterolisthesis of L1. 2. Thoracolumbar scoliosis. REPORT SIGNED IN OTHER VENDOR SYSTEM 10/31/2014 Reported By: Eric Forman MD CC: Transcribed Date/Time: 10/31/2014 (2626) Insole Beveler: Printed Date/Time: 04/11/2019 (6546) PAGE 1 Signed Report Cassandra Story PA-C IMG DIAGNOSTIC IM AGING ORDERABLES documented in this encounter Visit Diagnoses Not on filedocumented in this encounter Care Teams Roof Truss Detailer Relationship Specialty Start Date End Date Unknown, Provider, PCP - General 09/06/14 documented as of this encounter
== END ==
PROVIDERS: PCP Nurse Practitioner; Visit Provider Nurse Practitioner
DX: Z12.2 Encounter for screening for malignant neoplasm of respiratory organs (principal); F17.210 Nicotine dependence, cigarettes, uncomplicated; J43.8 Other emphysema
CPT/HCPCS: 71271